=== PATIENT | male | born 1975 | race Caucasian/White ===

== ENCOUNTER 2019-10-23 18:07 | Emergency (ER) | payer OTHER, SELFPAY ==
--- NOTE | ~2019-10-23 | XR_ITS ---
EXAMINATION: XR chest 2V EXAM DATE: 10/23/2019 18:48 INDICATION: Cough for 3 weeks. TECHNIQUE: Frontal and lateral projections of the chest obtained and reviewed. Comparison is made to prior examination from 09/25/2015. FINDINGS: Anterior basilar granuloma unchanged, identified on the lateral projection. The lungs are otherwise clear. There are no pleural effusions. The cardiomediastinal silhouette is within normal limits. There is no pneumothorax suspected. The bones and soft tissues are unremarkable. IMPRESSION: No acute cardiopulmonary findings. Reviewed, dictated and finalized at location A.
[2019-10-23 18:18] VITALS: BP 127/76; PULSE 78; RESP 16; TEMP 36.7; O2SAT 99
--- NOTE | 2019-10-23 18:59 | ED.URI ---
HPI - URI/Sore Throat General Chief Complaint: Upper Respiratory Infection Stated Complaint: Cough Source: patient Mode of arrival: ambulatory Limitations: no limitations History of Present Illness HPI Narrative: Patient is a 44-year-old male who presents complaining of productive cough and congestion x2 to 3 weeks. Patient denies chest pain or shortness of breath at this time. Patient denies fever. Patient reports that he currently does smoke cigarettes. Patient reports using [id number] medications with mild to moderate relief. MD elicited complaint: cough and nasal congestion Related Data Allergies Allergy/AdvReac Type Severity Reaction Status Date / Time No Known Allergies Allergy Verified 06/12/15 12:38 Review of Systems Review of Systems: Narrative: CONSTITUTIONAL: Denies fever, chills, or sweats. EYES: Denies visual changes, redness, or discharge. ENT: Denies rhinorrhea, sore throat, or otalgia. Reports congestion CARDIOVASCULAR: Denies chest pain, palpitations, or edema. RESPIRATORY: Reports cough, denies dyspnea. GASTROINTESTINAL: Denies abdominal pain, nausea, vomiting, or diarrhea. GENITOURINARY: Denies dysuria or hematuria. SKIN: Denies rash or itching. MUSCULOSKELETAL: Denies back pain, joint pain, or myalgia. NEUROLOGIC: Denies headache, numbness, dizziness, or weakness. PSYCHIATRIC: Denies anxiety or depression. PMFSH Past Medical History Medical History No significant family history No significant past medical history Surgical History Surgical History No significant past surgical history Family History Family History Grandparent Family history of lung cancer Social History Social History Smoking status: Current every day smoker Exam Narrative: Exam Narrative: GENERAL: Well-appearing, well-nourished, and in no acute distress. HEAD: Normocephalic, atraumatic. EYES: EOMI. No redness or drainage. Conjunctiva are normal. ENT: Mucous membranes pink and moist. Nares clear. No rhinorrhea. TMs normal bilaterally. Throat normal. Uvula midline. NECK: AROM. Supple. No lymphadenopathy. CHEST: No respiratory distress. Clear to auscultation. HEART: Regular rate and rhythm. No murmur appreciated. Normal peripheral pulses. EXTREMITIES: Normal range of motion. No edema. SKIN: Warm, dry, no rash. NEURO: No focal deficits. Alert and oriented x3. Gait steady. PSYCH: Normal affect. No signs of depression or anxiety. Course Vital Signs Vital signs: Vital Signs Temperature 36.7 C 10/23/19 18:18 Pulse Rate 78 10/23/19 18:18 Respiratory Rate 16 10/23/19 18:18 Blood Pressure 127/76 10/23/19 18:18 Pulse Oximetry 99 10/23/19 18:18 Temperature 36.7 C 10/23/19 18:18 Pulse Rate 78 10/23/19 18:18 Respiratory Rate 16 10/23/19 18:18 Blood Pressure 127/76 10/23/19 18:18 Pulse Oximetry 99 10/23/19 18:18 MDM - URI/Sore Throat MDM Narrative Medical decision making narrative: Patient most likely has URI. Reports history of bronchitis in the past. Lungs are clear at this time. Discussed with patient continuing to take [id number] meds for relief. Patient also started on prednisone and inhaler at this time. Patient agrees with plan of care. Patient is stable for discharge home with outpatient follow-up as needed. Differential Diagnosis Differential diagnosis: Likely upper respiratory infection, sinusitis, viral infection and bronchitis Critical Care Time Critical Care Time Critical Care Time: No Discharge Plan Discharge Clinical Impression: Bronchitis Patient Disposition: Home, Self-Care Condition: Stable Instructions: Acute Bronchitis (ED) Additional Instructions: Follow-up with your PCP in 3 to 5 days if symptoms pers
== END 2019-10-23 19:15 | disposition home or self-care (01) ==
PROVIDERS: Emergency Provider Nurse Practitioner; PCP Family Medicine
DX: J40 Bronchitis, not specified as acute or chronic (principal); F17.200 Nicotine dependence, unspecified, uncomplicated
CPT/HCPCS: 71046; 99203; G0463

== ENCOUNTER 2020-10-17 13:26 | Emergency (ER) | payer OTHER, SELFPAY ==
[2020-10-17 13:42] VITALS: BP 129/80; PULSE 98; RESP 16; TEMP 36.7; O2SAT 97
--- NOTE | 2020-10-17 13:57 | ED.EAR ---
HPI - Ear Problem General Chief complaint: Ear Stated complaint: left ear pain Source: patient and RN notes reviewed Limitations: no limitations History of Present Illness HPI Narrative: The patient, a non-smoker/ occ drinker, complains of 1 week history of mild left ear discomfort. No fever, discharge, loss of taste/smell, CP, vomiting/diarrhea, S OB, sore throat.He is concerned has had an ear infection, as he has had ruptured TM on the right in the past. His discomfort actually is behind the angle of jaw; No TMJ, bruxism, tooth ache, no rash-he comments he has pimples in his right groin. Discussed possible causes [dental , infectious, allergic] and will treat broadly Related Data Home Medications Medication Instructions Recorded Confirmed loratadine [Claritin] 10 mg PO DAILY 10/17/20 10/17/20 Allergies Allergy/AdvReac Type Severity Reaction Status Date / Time No Known Allergies Allergy Verified 10/17/20 13:38 Review of Systems Review of Systems: Narrative: General/Constitutional: No weight loss,fever Eyes: N0: Redness,discharge Ears/Nose/Throat: No: Epistaxis,ear discharge Respiratory: Denies: Hemoptysis Gastrointestinal: No Vomiting, Bleeding-rectal Skin: No Lumps, eruption Neurologic: No Focal Weakness,Sz Hematologic: Denies: Petechiae/Purpura Psychiatric: No: Suicida ideationl All Other Systems: Reviewed and Negative [facility] Past Medical History Medical History (Updated 10/17/20 @ 14:36 by Blu Mayer MD) No significant family history No significant past medical history Surgical History Surgical History No significant past surgical history Family History Family History Grandparent Family history of lung cancer Social History Social History Smoking status: Current every day smoker Gender identity (if verbalized by the patient): Male Comments At time of signature, agree with nursing past medical, surgical, social and family history. There is no relevant family history pertinent to the presenting complaint Exam Narrative: Exam Narrative: General Appearance: Well appearing, No distress EYE: PERRLA, Conjunctiva clear Ears: External ear normal Nose: Normal nose Mouth/Throat: Normal appearing, Normal lips Neck: Supple, no TMJ tenderness Respiratory: Airway patent, No respiratory distress Cardiovascular: no JVD Musculoskeletal: Full ROM Skin: Warm, Dry; no folliculitis change -right groin Neurological: A&O x3, CN II-X intact Psychiatric: Normal mood, Normal affect Course Vital Signs Vital signs: Vital Signs Temperature 98.1 F 10/17/20 13:42 Pulse Rate 98 10/17/20 13:42 Respiratory Rate 16 10/17/20 13:42 Blood Pressure 129/80 10/17/20 13:42 Pulse Oximetry 97 10/17/20 13:42 Temperature 98.1 F 10/17/20 13:42 Pulse Rate 98 10/17/20 13:42 Respiratory Rate 16 10/17/20 13:42 Blood Pressure 129/80 10/17/20 13:42 Pulse Oximetry 97 10/17/20 13:42 Medical Decision Making Vital Signs Vital Signs: Vital Signs Temperature 98.1 F 10/17/20 13:42 Pulse Rate 98 10/17/20 13:42 Respiratory Rate 16 10/17/20 13:42 Blood Pressure 129/80 10/17/20 13:42 Pulse Oximetry 97 10/17/20 13:42 Temperature 98.1 F 10/17/20 13:42 Pulse Rate 98 10/17/20 13:42 Respiratory Rate 16 10/17/20 13:42 Blood Pressure 129/80 10/17/20 13:42 Pulse Oximetry 97 10/17/20 13:42 Discharge Plan Discharge Clinical Impression: Otalgia, left ear, Folliculitis Patient Disposition: Home, Self-Care Condition: Stable Instructions: Antibiotic Form, Earache (ED) Prescriptions: New clindamycin HCl 300 mg capsule 300 mg PO TID Qty: 15 RF: 0 mupirocin 2 % ointment 1 applic TOPICAL TID Qty: 30 RF: 0 prednisone 20 mg tablet 60 mg PO DAILY
== END 2020-10-17 14:03 | disposition home or self-care (01) ==
PROVIDERS: Emergency Provider Emergency Medicine
DX: H92.02 Otalgia, left ear (principal); L73.9 Follicular disorder, unspecified; F17.200 Nicotine dependence, unspecified, uncomplicated
CPT/HCPCS: 99213; G0463

== ENCOUNTER 2021-08-11 19:06 | Emergency (ER) | payer OTHER, SELFPAY ==
[2021-08-11 19:13] VITALS: BP 136/81; PULSE 82; RESP 16; TEMP 36.4; O2SAT 100
--- NOTE | 2021-08-11 19:19 | ED.URI ---
HPI - URI/Sore Throat General Chief Complaint: Upper Respiratory Infection Stated Complaint: Sinus infection Time Seen by Provider: 08/11/21 19:19 Source: patient and RN notes reviewed Mode of arrival: ambulatory Limitations: no limitations History of Present Illness HPI Narrative: Avni is a 46-year-old male patient who ambulated into the [facility]. Patient states he has a 2-week history of ear pain, and sinus congestion. Patient states he felt like there was fluid in his right ear and now his left is worse. Patient states he has a sore throat. Patient denies any medical problems at this time. Patient has been taking Claritin [id number] daily. With minimal MD elicited complaint: sore throat and other Related Data Allergies Allergy/AdvReac Type Severity Reaction Status Date / Time No Known Allergies Allergy Verified 08/11/21 19:11 Review of Systems Review of Systems: CONSTITUTIONAL: Denies body aches, fever, chills, or sweats. EYES: Denies visual changes, redness, or discharge. ENT: Denies rhinorrhea, +congestion, +sore throat, + otalgia. CARDIOVASCULAR: Denies chest pain, palpitations, or edema. RESPIRATORY: Denies cough or dyspnea. GASTROINTESTINAL: Denies abdominal pain, nausea, vomiting, or diarrhea. GENITOURINARY: Denies dysuria or hematuria. SKIN: Denies rash, itching, or wounds. MUSCULOSKELETAL: Denies back pain, joint pain, or myalgia. NEUROLOGIC: Denies headache, numbness, tingling, or weakness. PSYCH: Denies depression or anxiety. All systems reviewed & are unremarkable except as noted in HPI and below PMFSH Past Medical History Medical History (Updated 08/11/21 @ 19:24 by ZEB Perez) No significant family history No significant past medical history Surgical History Surgical History No significant past surgical history Family History Family History Grandparent Family history of lung cancer Social History Social History Smoking status: Current every day smoker Gender identity (if verbalized by the patient): Male Comments At time of signature, I have reviewed and agree with nursing past medical, surgical, social and family history unless otherwise noted. Please see nursing chart for further information. There is no relevant family history pertinent to the presenting complaint Exam Narrative: GENERAL: Well-appearing, well-nourished, and in no acute distress. HEAD: Normocephalic, atraumatic. EYES: EOMI. No redness or drainage. Conjunctivae normal. ENT: Mucous membranes pink and moist. Nares clear. No rhinorrhea. Right tympanic membrane is opaque with moderate bulging. Left tympanic membrane is bulging and erythemic. Small blisters noted on the tympanic membrane. Posterior pharynx is erythemic with moderate edema 3+ tonsils are noted. No exudate is noted. Uvula midline. NECK: Normal AROM. Supple. Left anterior cervical lymphadenopathy. CHEST: No respiratory distress. Clear to auscultation. MUSCULOSKELETAL: No bony tenderness. EXTREMITIES: Normal range of motion. No edema. SKIN: Warm, dry, no rash. Capillary refill normal. Normal skin turgor. NEURO: No focal deficits. Alert and oriented x3. Gait steady. PSYCH: Normal affect. No signs of depression or anxiety. Course Vital Signs Vital signs: Vital Signs Temperature 36.4 C 08/11/21 19:13 Pulse Rate 82 08/11/21 19:13 Respiratory Rate 16 08/11/21 19:13 Blood Pressure 136/81 08/11/21 19:13 Pulse Oximetry 100 08/11/21 19:13 Temperature 36.4 C 08/11/21 19:13 Pulse Rate 82 08/11/21 19:13 Respiratory Rate 16 08/11/21 19:13 Blood Pressure 136/81 08/11/21 19:13 Pulse Oximetry 100 08/11/21 19:13 Reviewed. Pt has been instructed to follow up with his PCP regarding his elevated blood pressure today. MDM - URI/Sore Th
[2021-08-11 19:20] VITALS: BP 136/81; PULSE 82; RESP 16; TEMP 36.4; O2SAT 100
== END 2021-08-11 19:27 | disposition home or self-care (01) ==
PROVIDERS: Emergency Provider Nurse Practitioner Family; PCP Family Medicine
DX: H66.002 Acute suppurative otitis media without spontaneous rupture of ear drum, left ear (principal); F17.200 Nicotine dependence, unspecified, uncomplicated
CPT/HCPCS: 99213; G0463

== ENCOUNTER 2021-10-04 12:08 | Emergency (ER) | payer OTHER, SELFPAY ==
[2021-10-04 12:22] VITALS: BP 129/88; PULSE 88; RESP 20; TEMP 36.6; O2SAT 99
--- NOTE | 2021-10-04 12:39 | ED.URI ---
HPI - URI/Sore Throat General Chief Complaint: Upper Respiratory Infection Stated Complaint: sinus infection Time Seen by Provider: 10/04/21 12:39 Source: patient, family, RN notes reviewed and old records reviewed Mode of arrival: ambulatory Limitations: no limitations History of Present Illness HPI Narrative: 46-year-old male presents to the [facility] with 2 weeks of ear pain and sinus congestion. No treatment prior to arrival. MD elicited complaint: nasal congestion and sinus pain Related Data Allergies Allergy/AdvReac Type Severity Reaction Status Date / Time No Known Allergies Allergy Verified 08/11/21 19:11 Review of Systems Review of Systems: All systems reviewed & are unremarkable except as noted in HPI and below Constitutional: Constitutional: Reports no additional constitutional complaints, Denies chills, Denies fever(s) and Denies headache(s) Eyes: Eyes: Reports no additional eye complaints ENT: Reports as per HPI, Denies vertigo, Denies dizziness, Denies headache(s), Reports nasal congestion and Denies sore throat Comments: Bilateral ear pain Cardiovascular: Cardiovascular: Reports no additional cardiovascular complaints, Denies chest pain, Denies syncope, Denies rapid heart rate and Denies dyspnea Respiratory: Respiratory: Reports no additional respiratory complaints, Denies cough, Denies dyspnea and Denies wheezing Gastrointestinal: Gastrointestinal: Reports no additional gastrointestinal complaints, Denies abdominal pain, Denies diarrhea, Denies nausea and Denies vomiting Musculoskeletal: Musculoskeletal: Reports no additional musculoskeletal complaints and Denies numbness Integumentary/Breasts: Skin/Breast: Reports system reviewed and no additional complaints, except as docu Neurologic: Reports system reviewed and no additional complaints, except as documented, Denies vertigo, Denies dizziness, Denies syncope, Denies headache(s), Denies focal weakness and Denies numbness Psychiatric: Psychiatric: Reports no additional psychiatric complaints Allergic/Immunologic: Allergic/Immunologic: Reports no additional allergic/immunologic complaints and Denies wheezing PMFSH Past Medical History Medical History (Updated 10/04/21 @ 12:48 by Lilly Blackmon) No significant family history No significant past medical history Surgical History Surgical History No significant past surgical history Family History Family History Grandparent Family history of lung cancer Social History Social History Smoking status: Current every day smoker Gender identity (if verbalized by the patient): Male Comments At the time of my signature, I reviewed and agree with the nursing past medical, surgical, social, and family history. There is no relevant family history pertinent to the patient complaint. Exam Const: General: cooperative, healthy appearing, no acute distress, well developed and alert Nutritional Appearance: well nourished Orientation/consciousness: patient oriented x3 Limitations: no limitations HENMT: Head: normal to inspection Ears: external ears normal, EAC's normal and TM abnormal bulging on the right, erythematous on the left and with fluid behind the TM on the right Eyes: Conjunctivae: conjunctivae normal Pupils: Equal, round and reactive pupils present Neck: Neck: normal visual inspection, no lymphadenopathy and no meningeal signs Chest: Chest palpation & inspection: normal inspection of the chest Resp: Effort & Inspection: normal respiratory effort and no use of accessory muscles Auscultation: clear to auscultation bilaterally, no crackles, no rales, no rhonchi and no wheezes Cardio: Rate: regular rate Rhythm: regular rhythm : General: Yes no CVA tenderness Back/Spine/Pelvis: Back: no CVA tenderness Skin: General skin exam: normal color Ra
== END 2021-10-04 12:52 | disposition home or self-care (01) ==
PROVIDERS: Emergency Provider Nurse Practitioner
DX: H66.91 Otitis media, unspecified, right ear (principal); J32.9 Chronic sinusitis, unspecified; H65.02 Acute serous otitis media, left ear; F17.200 Nicotine dependence, unspecified, uncomplicated
CPT/HCPCS: 99213; G0463

== ENCOUNTER 2021-10-22 16:11 | Emergency (ER) | payer OTHER, SELFPAY ==
[2021-10-22 16:47] VITALS: BP 150/80; PULSE 85; RESP 16; TEMP 36.6; O2SAT 99
--- NOTE | 2021-10-22 16:51 | ED.EAR ---
HPI - Ear Problem General Chief complaint: Ear Stated complaint: ear pain Time Seen by Provider: 10/22/21 16:51 Source: patient Mode of arrival: ambulatory Limitations: no limitations History of Present Illness HPI Narrative: 46 yo M presents with c/o pressure, feeling of being under water to L ear for several days. States not really painful . No change to hearing. afebrile. No other symptoms. All systems reviewed and negative except as noted above. Related Data Allergies Allergy/AdvReac Type Severity Reaction Status Date / Time No Known Allergies Allergy Verified 08/11/21 19:11 Review of Systems Review of Systems: CONSTITUTIONAL: Denies fever, chills, or sweats. EYES: Denies visual changes, redness, or discharge. ENT: Denies rhinorrhea, congestion, sore throat. Reports pressure and feeling of being underwater to left ear. CARDIOVASCULAR: Denies chest pain, palpitations, or edema. RESPIRATORY: Denies cough or dyspnea. GASTROINTESTINAL: Denies abdominal pain, nausea, vomiting, or diarrhea. GENITOURINARY: Denies dysuria or hematuria. SKIN: Denies rash or itching. MUSCULOSKELETAL: Denies back pain, joint pain, or myalgia. NEUROLOGIC: Denies headache, numbness, or weakness. PSYCHIATRIC: Denies anxiety or depression. All other systems reviewed are negative, except as documented in HPI. [facility] Past Medical History Medical History (Updated 10/22/21 @ 16:56 by Raquel Romero NP) No significant family history No significant past medical history Surgical History Surgical History No significant past surgical history Family History Family History Grandparent Family history of lung cancer Social History Social History Smoking status: Current every day smoker Gender identity (if verbalized by the patient): Male Comments At time of signature, agree with nursing past medical, surgical, social and family history. There is no relevant family history pertinent to the presenting complaint. Exam Narrative: GENERAL: This is a well-nourished, well-developed patient, in no apparent distress. HEAD: normocephalic, atraumatic. EYES: PERRL. Sclera clear/white. Vision is grossly intact. EARS: External ears normal, auditory canals clear and without drainage, right TM normal without perforation. Hearing grossly intact. Fluid to left TM with air bubbles, no erythema or bulging. NOSE: External nose normal with no obvious nasal discharge, nares without redness, no rhinorrhea. THROAT: Mucous membranes moist, posterior pharynx clear. NECK: Neck supple, non-tender without lymphadenopathy, masses or thyromegaly. CARDIOVASCULAR: Regular rate and rhythm without murmurs, gallops, or rubs. RESPIRATORY: Clear to auscultation. Breath sounds equal bilaterally. No wheezes, rales, or rhonchi. GASTROINTESTINAL: Abdomen soft, non-tender, nondistended. Bowel sounds are active. No hepato-splenomegaly, or palpable masses. No guarding. SKIN: warm, Dry, intact with no suspicious lesions or rash, good texture and turgor. NEURO: awake, alert, and oriented to person, place and time. There were no obvious focal neurologic abnormalities. EXTREMITIES: No joint tenderness, effusion, or edema noted. No calf tenderness. Negative Homans sign bilaterally. BACK: Nontender without deformity. No CVA tenderness. Course Course Level of Care: Express Care Visit Vital Signs Vital signs: Vital Signs Temperature 36.6 C 10/22/21 16:47 Pulse Rate 85 10/22/21 16:47 Respiratory Rate 16 10/22/21 16:47 Blood Pressure 150/80 H 10/22/21 16:47 Pulse Oximetry 99 10/22/21 16:47 Temperature 36.6 C 10/22/21 16:47 Pulse Rate 85 10/22/21 16:47 Respiratory Rate 16 10/22/21 16:47 Blood Pressure 150/80 H 10/22/21 16:47 Pulse Oximetry 99 10/22/21 16:47 Reviewed Medical Decision Dalia
== END 2021-10-22 16:58 | disposition home or self-care (01) ==
PROVIDERS: Emergency Provider Nurse Practitioner Family
DX: H93.92 Unspecified disorder of left ear (principal); F17.200 Nicotine dependence, unspecified, uncomplicated
CPT/HCPCS: 99211; G0463

== ENCOUNTER 2021-12-11 09:51 | Outpatient (CLI) | payer OTHER, SELFPAY | END 2021-12-11 09:52 | disposition home or self-care (01) | LOC: ANHAUDIO 09:52 | PROVIDERS: Visit Provider Otolaryngology | DX: H65.23 Chronic serous otitis media, bilateral (principal) | CPT/HCPCS: 92557; 92567 ==

== ENCOUNTER 2022-07-01 15:10 | Emergency (ER) | payer OTHER, SELFPAY ==
--- NOTE | 2022-07-01 15:19 | ED.URI ---
HPI - URI/Sore Throat General Chief Complaint: Upper Respiratory Infection Stated Complaint: cough Time Seen by Provider: 07/01/22 15:41 Source: patient, RN notes reviewed and old records reviewed Mode of arrival: ambulatory Limitations: no limitations History of Present Illness HPI Narrative: 47-year-old male presents to the [facility] with complaints of a cough for 1 month. Denies any chest pain, abdominal pain. Denies fevers. No shortness of breath. No treatment prior to arrival Related Data Allergies Allergy/AdvReac Type Severity Reaction Status Date / Time No Known Allergies Allergy Verified 07/01/22 15:50 Review of Systems Review of Systems: All systems reviewed & are unremarkable except as noted in HPI and below Constitutional: Constitutional: Reports no additional constitutional complaints, Denies chills and Denies fever(s) Eyes: Eyes: Reports no additional eye complaints ENT: Reports system reviewed and no additional complaints, except as documented Cardiovascular: Cardiovascular: Reports no additional cardiovascular complaints Respiratory: Respiratory: Reports as per HPI, Denies chest congestion, Reports cough, Denies dyspnea and Denies wheezing Gastrointestinal: Gastrointestinal: Reports no additional gastrointestinal complaints Musculoskeletal: Musculoskeletal: Reports no additional musculoskeletal complaints Integumentary/Breasts: Skin/Breast: Reports system reviewed and no additional complaints, except as docu Neurologic: Reports system reviewed and no additional complaints, except as documented Psychiatric: Psychiatric: Reports no additional psychiatric complaints Allergic/Immunologic: Allergic/Immunologic: Reports no additional allergic/immunologic complaints [facility] Past Medical History Medical History (Updated 07/01/22 @ 15:50 by Lilly Blackmon APRN) No significant family history No significant past medical history Surgical History Surgical History No significant past surgical history Family History Family History Grandparent Family history of lung cancer Social History Social History Smoking status: Current every day smoker Gender identity (if verbalized by the patient): Male Comments At the time of my signature, I reviewed and agree with the nursing past medical, surgical, social, and family history. There is no relevant family history pertinent to the patient complaint. Exam Const: General: healthy appearing, comfortable, no acute distress, well developed, alert and well nourished Nutritional Appearance: well nourished Orientation/consciousness: patient oriented x3 Limitations: no limitations HENMT: Head: normal to inspection Ears: external ears normal and TM abnormal other (Bilateral tubes) Face/Nose/Sinus: Normal external nose present and Normal nares present Eyes: General: appearance normal, both eyes and all related structures Pupils: Equal, round and reactive pupils present Neck: Neck: normal visual inspection, full ROM, no lymphadenopathy and no meningeal signs Chest: Chest palpation & inspection: normal inspection of the chest Resp: Effort & Inspection: normal respiratory effort and no use of accessory muscles Auscultation: clear to auscultation bilaterally, no crackles, no rales, no rhonchi and no wheezes Cardio: Rate: regular rate Rhythm: regular rhythm Back/Spine/Pelvis: Cervical Spine: cervical ROM normal and No Cervical spine tenderness Thoracic/Lumbar Spine: thoracic and lumbar spine normal to inspection and thoraco-lumbar ROM normal Skin: General skin exam: normal color Rashes: no rashes Wounds: no wounds Neuro: General: patient oriented x3, moves all extremities, no meningeal signs and no focal motor deficits Cranial nerves: Yes Equal, round and reactive pupils present Speech: malcolm
[2022-07-01 15:22] VITALS: BP 140/79; PULSE 71; RESP 16; TEMP 36.6; O2SAT 98
== END 2022-07-01 15:59 | disposition home or self-care (01) ==
PROVIDERS: Emergency Provider Nurse Practitioner
DX: J40 Bronchitis, not specified as acute or chronic (principal); F17.200 Nicotine dependence, unspecified, uncomplicated
CPT/HCPCS: 99213; G0463

== ENCOUNTER 2022-10-30 15:06 | Emergency (ER) | payer OTHER, SELFPAY ==
[2022-10-30 15:16] VITALS: BP 138/78; PULSE 72; RESP 16; TEMP 36.4; O2SAT 98
--- NOTE | 2022-10-30 15:35 | ED.SKABFB ---
HPI - Skin/Abscess/Foreign Bdy General Chief complaint: Skin/Abscess/Foreign Body Stated complaint: Bump On Right Abdomen Time Seen by Provider: 10/30/22 15:35 Source: patient Mode of arrival: ambulatory Limitations: no limitations History of Present Illness HPI narrative: 47-year-old male presented for complaint of red, warm, painful wound to the right lower abdomen for about 1 week. States his belt and pants rub the area. He tried to pop it yesterday but only expelled blood. Denies associated nausea, vomiting, fevers or chills. Denies any similar lesions anywhere else in his body. Related Data Allergies Allergy/AdvReac Type Severity Reaction Status Date / Time No Known Allergies Allergy Verified 10/30/22 15:12 Review of Systems Review of Systems: CONSTITUTIONAL: Denies body aches, fever, chills, or sweats. EYES: Denies visual changes, redness, or discharge. ENT: Denies rhinorrhea, congestion CARDIOVASCULAR: Denies chest pain, palpitations, or edema. RESPIRATORY: Denies cough or dyspnea. GASTROINTESTINAL: Denies abdominal pain, nausea, vomiting, or diarrhea. SKIN: per HPI MUSCULOSKELETAL: Denies back pain, joint pain, or myalgia. NEUROLOGIC: Denies headache, numbness, tingling, or weakness. [facility] Past Medical History Medical History No significant family history No significant past medical history Surgical History Surgical History No significant past surgical history Family History Family History Grandparent Family history of lung cancer Social History Social History Smoking status: Current every day smoker Gender identity (if verbalized by the patient): Male Comments At time of signature, I have reviewed and agree with nursing past medical, surgical, social and family history unless otherwise noted. Please see nursing chart for further information. There is no relevant family history pertinent to the presenting complaint Exam Narrative: GENERAL: Well-appearing EYES: conjunctivae clear, and EOMI. ENT: Mucous membranes moist. Oropharynx without edema, erythema or lesions. NECK: Supple. No lymphadenopathy CHEST: Clear to auscultation. HEART: Regular rate and rhythm. SKIN: Warm, dry. [id number] erythematous tender abscess to right lower abd/beltline, firm, no fluctuance or active drainage NEURO: Alert and oriented x3. Course Course Emergency Course: Patient is aware of diagnosis, understands and agrees to treatment plan. Anticipatory guidance given. Patient agrees to follow-up as directed and is aware of reasons to seek care at the emergency department. Portions of this record may have been created with voice recognition software Level of Care: Express Care Visit Vital Signs Vital signs: Vital Signs Temperature 97.5 F L 10/30/22 15:16 Pulse Rate 72 10/30/22 15:16 Respiratory Rate 16 10/30/22 15:16 Blood Pressure 138/78 10/30/22 15:16 Pulse Oximetry 98 10/30/22 15:16 Oxygen Delivery Room Air 10/30/22 15:16 Temperature 97.5 F L 10/30/22 15:16 Pulse Rate 72 10/30/22 15:16 Respiratory Rate 16 10/30/22 15:16 Blood Pressure 138/78 10/30/22 15:16 Pulse Oximetry 98 10/30/22 15:16 Oxygen Delivery Room Air 10/30/22 15:16 Reviewed MDM - Skin/Abscess/Foreign Bdy MDM Narrative Medical decision making narrative: Discussed physical findings with patient. Site is firm, no fluctuance, therefor no indication for I& D at this time. Rx for antibiotics, and advised close follow-up with PCP. Advised supportive measures and signs/symptoms to go to the ER. Pt is appropriate for outpt treatment and f/u. Differential Diagnosis Differential diagnosis: Likely abscess of skin or subcutaneous tissue, urticaria, herpes zoster, cellulitis an
== END 2022-10-30 15:45 | disposition home or self-care (01) ==
PROVIDERS: Emergency Provider Nurse Practitioner Family; PCP Physician Assistant
DX: L02.211 Cutaneous abscess of abdominal wall (principal); F17.200 Nicotine dependence, unspecified, uncomplicated
CPT/HCPCS: 99213; G0463

== ENCOUNTER 2023-04-04 14:45 | Emergency (ER) | payer BC, SELFPAY ==
--- NOTE | 2023-04-04 14:47 | ED.URI ---
HPI - URI/Sore Throat General Chief Complaint: Unspecified Stated Complaint: Sinus Time Seen by Provider: 04/04/23 14:47 Source: patient Mode of arrival: ambulatory Limitations: no limitations History of Present Illness HPI Narrative: Avni is a 47-year-old male patient presenting to the clinic today with complaints of sinus congestion, headache, nasal drainage cone in the back was through times 2 weeks or more. He reports no fever or chills. Does have a productive cough with some yellow phlegm. MD elicited complaint: sore throat and nasal congestion Related Data Allergies Allergy/AdvReac Type Severity Reaction Status Date / Time No Known Allergies Allergy Verified 10/30/22 15:12 Review of Systems Review of Systems: Pertinent positives per HPI. Patient denies any fever, chills, rash, headache, visual changes, dizziness,shortness of breath, chest pain, palpitations, nausea, vomiting, diarrhea, constipation, abdominal pain, or any urinary issues. PMFSH Past Medical History Medical History (Updated 04/04/23 @ 15:04 by Yao Ritter APRN) No significant family history No significant past medical history Surgical History Surgical History No significant past surgical history Family History Family History Grandparent Family history of lung cancer Social History Social History Smoking status: Current every day smoker Gender identity (if verbalized by the patient): Male Comments At the time of my signature, I reviewed and agree with the nursing past medical, surgical, social, and family history. There is no relevant family history pertinent to the patient complaint. Exam Narrative: General: Well-developed, well nourished, in no apparent distress Head: Normocephalic, atraumatic Eyes: Pupils equally round and reactive to light bilaterally, EOM intact, sclera and conjunctive clear, no discharge, lids normal Ears: TMs intact and clear, ear canals clear, no drainage, grossly hearing normal. Nose: Nares patent, yellow discharge, moderate inflammation, maxillary sinus tenderness. Mouth: Oral pharynx without lesions or masses, good dentition, MMM. Neck: Supple, trachea midline, no enlargement of anterior or posterior cervical nodes, no thyroid masses or goiter palpable. Cardio: Regular rate and rhythm, s1 and s2 normal, no murmur appreciated. Resp: Clear to auscultation bilaterally, no rhonchi, rales, wheezing or rubs Course Course Emergency Course: Portions of this record may have been created with voice recognition software. Level of Care: Express Care Visit Vital Signs Vital signs: Vital signs reviewed MDM - URI/Sore Throat MDM Narrative Medical decision making narrative: At the time of visit patient is resting comfortably on the exam table. I suspect patient has acute bacterial rhinosinusitis. Prescription for Augmentin and prednisone was sent to the pharmacy. Supportive measures were discussed with the patient he voiced understanding discharge instructions agrees to treatment plan. Differential Diagnosis Differential diagnosis: Likely upper respiratory infection, otitis media, sinusitis, viral infection, bronchitis, influenza, pharyngitis and other (COVID) Discharge Plan Discharge Clinical Impression: Acute bacterial rhinosinusitis Patient Disposition: Home, Self-Care Condition: Stable Instructions: Antibiotic Form, Rhinosinusitis (ED) Additional Instructions: Take prescription medications only as prescribed-prednisone and Augmentin Increase fluids and stay well hydrated Tylenol/motrin for pain/fever Flonase and OTC antihistamines as directed Vicks vapor rub to open sinuses Sinus rinses for congestion Cepacol spray, cough drops, throat lozenges, warm tea with honey/lemon,
[2023-04-04 14:53] VITALS: BP 132/81; PULSE 96; RESP 20; TEMP 36.4; O2SAT 99
--- NOTE | 2023-04-04 15:06 | PC.NURSE ---
documentation completed per earnest mohamud rn, reviewed
== END 2023-04-04 15:11 | disposition home or self-care (01) ==
PROVIDERS: Emergency Provider Nurse Practitioner Family; PCP Physician Assistant
DX: J01.90 Acute sinusitis, unspecified (principal); F17.200 Nicotine dependence, unspecified, uncomplicated
CPT/HCPCS: 99213; G0463

== ENCOUNTER 2023-07-04 12:08 | Emergency (ER) | payer BC, SELFPAY ==
[2023-07-04 12:22] VITALS: BP 125/75; PULSE 90; RESP 16; TEMP 36.5; O2SAT 99
--- NOTE | 2023-07-04 13:07 | ED.GENADULT ---
HPI - General Adult General Chief complaint: Ear Stated complaint: right ear irritated, tube came out last pm Time Seen by Provider: 07/04/23 13:07 Source: patient Mode of arrival: ambulatory Limitations: no limitations History of Present Illness HPI narrative: 48-year-old male patient presents to the [facility] with complaints of right ear discomfort. Patient states he had bilateral ear tubes placed about a year ago for issues with drainage in recurrent ear infections. Patient states that they looked in the ear yesterday and saw a lot of pus earwax and discharge around the tube and that it did fall out last night. Denies fevers body aches or chills but states he did have cold symptoms about a week ago but he is getting over it. Denies any acute pain at this time. Denies drainage from the ear at this time. Related Data Home Medications Medication Instructions Recorded Confirmed loratadine 10 mg tablet (Claritin) 10 mg PO DAILY 07/04/23 07/04/23 Allergies Allergy/AdvReac Type Severity Reaction Status Date / Time No Known Allergies Allergy Verified 07/04/23 12:47 Review of Systems Review of Systems: CONSTITUTIONAL: Denies fever, chills, or sweats. EYES: Denies visual changes, redness, or discharge. ENT: Denies rhinorrhea, congestion, sore throat, or otalgia. Positive right ear discomfort posterior pharynx with no erythema or tonsillar enlargement noted. CARDIOVASCULAR: Denies chest pain, palpitations, or edema. RESPIRATORY: Denies cough or dyspnea. GASTROINTESTINAL: Denies abdominal pain, nausea, vomiting, or diarrhea. GENITOURINARY: Denies dysuria or hematuria. SKIN: Denies rash or itching. MUSCULOSKELETAL: Denies back pain, joint pain, or myalgia. NEUROLOGIC: Denies headache, numbness, or weakness. PSYCHIATRIC: Denies anxiety or depression. [facility] Past Medical History Medical History (Updated 07/04/23 @ 13:29 by EUNICE Mi) No significant family history No significant past medical history Surgical History Surgical History No significant past surgical history Family History Family History Grandparent Family history of lung cancer Social History Social History Smoking status: Current every day smoker Gender identity (if verbalized by the patient): Male Comments At the time of my signature I agree with nursing past medical history, surgical, social, and family history. There is no relevant family history pertinent to the presenting complaint. Exam Narrative: GENERAL: Well-appearing, well-nourished, and in no acute distress. HEAD: Normocephalic, atraumatic. EYES: PERRLA and EOMI. ENT: Nares clear, no rhinorrhea or epistaxis. Mucous membranes moist. The left ear does have a tube present and no signs symptoms of infection. The right ear has no tube visualized but no signs and symptoms of infection or drainage at this time. NECK: Supple. No lymphadenopathy CHEST: Clear to auscultation. No respiratory distress. HEART: Regular rate and rhythm. No murmur heard. Normal peripheral pulses. ABDOMEN: Soft, nontender, nondistended, normal active bowel sounds. EXTREMITIES: Normal range of motion. No edema. SKIN: Warm, dry, no rash. NEURO: No focal deficits. Alert and oriented x3. Course Course Level of Care: Express Care Visit Vital Signs Vital signs: Vital Signs Temperature 36.5 C 07/04/23 12:22 Pulse Rate 90 07/04/23 12:22 Respiratory Rate 16 07/04/23 12:22 Blood Pressure 125/75 07/04/23 12:22 Pulse Oximetry 99 07/04/23 12:22 Oxygen Delivery Room Air 07/04/23 12:22 Temperature 36.5 C 07/04/23 12:22 Pulse Rate 90 07/04/23 12:22 Respiratory Rate 16 07/04/23 12:22 Blood Pressure 125/75 07/04/23 12:22 Pulse Oximetry 99 07/04/23 12:22 Oxygen Delivery Room Air 07/04/23 12:22
== END 2023-07-04 13:34 | disposition home or self-care (01) ==
PROVIDERS: Emergency Provider Nurse Practitioner Family
DX: H69.91 Unspecified Eustachian tube disorder, right ear (principal); F17.200 Nicotine dependence, unspecified, uncomplicated
CPT/HCPCS: 99211; G0463

== ENCOUNTER 2025-08-09 09:56 | Outpatient (CLI) | payer OTHER, SELFPAY ==
--- OUTSIDE RECORDS SUMMARY | 2025-08-09 09:58 | XMS_ITS | Clinical Summary ---
Author Organization [facility] Office Center Address [address] [place] [address] Care Team Providers Care Ross Furnace Operator Name Role Phone Mell Schaeffer NP Primary Care Provider [phone] Unknown, Notinfile Unavailable Unavailable Allergies No known active allergies Medications loratadine (CLARITIN) 10 mg tablet Take 10 mg by mouth daily Active fluticasone propionate (FLONASE) 50 mcg/actuation nasal spray SHAKE LIQUID AND USE 1 SPRAY IN EACH NOSTRIL DAILY 01/04/20 25 Active dextromethorphan HBr (Tussin Cough, DM only,) 15 mg/5 mL liquidIndication s:Acute bronchitis with bronchospasm Take 5 mL/oz by mouth every 6 (six) hours as needed (as needed for cough) 420 mL 02/21/20 25 Active atorvastatin (LIPITOR) 20 mg tablet Take 1 tablet every day by oral route for 30 days, for hyperlipidemia. 05/26/20 25 Active Contour Plus Test Strip strip USE TO TEST TWICE DAILY 06/12/20 25 Active metFORMIN XR (GLUCOPHAGE XR) 500 mg 24 hr tablet TAKE 2 TABLETS BY MOUTH TWICE DAILY DIRECTED FOR DIABETES Active nicotine (NICODERM CQ) 14 mg Apply 1 patch every day by transdermal route as needed for 30 days, for smoking cessation. 03/06/20 25 Active albuterol HFA (PROVENTIL HFA,VENTOLIN HFA,PROAIR HFA) 90 mcg/actuation inhalerIndicatio ns:Acute bronchitis due to other specified organisms Inhale 2 puffs every 4 (four) hours as needed for wheezing 1 each 07/14/20 25 026 Active albuterol HFA (PROVENTIL HFA,VENTOLIN HFA,PROAIR HFA) 90 mcg/actuation inhalerIndicatio ns:Acute bronchitis with bronchospasm Inhale 1 puff every 6 (six) hours as needed for wheezing or shortness of breath 18 each 02/21/20 25 025 Discontinu ed(Patient Reported) methylPREDNISolo ne (MEDROL DOSEPACK) 4 mg DosepackIndicati ons:Acute bronchitis with bronchospasm follow package directions 1 packet 02/21/20 25 025 Discontinu ed(Patient Reported) predniSONE (DELTASONE) 20 mg tabletIndication s:Acute bronchitis due to other specified organisms Take 2 tablets (40 mg) by mouth daily with breakfast for 5 days 10 tablet 07/14/20 25 025 benzonatate (TESSALON) 100 mg capsuleIndicatio ns:Cough Take 1 capsule (100 mg total) by mouth 3 (three) times a day as needed for cough for up to 7 days 21 capsule 07/14/20 25 025 amoxicillin-clav ulanate (AUGMENTIN) 875-125 mg per tabletIndication s:Pneumonia, Community Acquired Take 1 tablet by mouth 2 (two) times a day for 5 days 10 tablet 07/14/20 25 025 azithromycin (ZITHROMAX) 500 mg tabletIndication s:Acute bronchitis due to other specified organisms Take 1 tablet (500 mg total) by mouth daily for 3 days 3 tablet 07/14/20 25 025 Active Problems Problem Noted Date Diagnosed Date Nicotine dependence, cigarettes, uncomplicated 1 09/13/2024 Hx of tympanostomy tubes 07/14/2025 Acute cough 06/13/2023 Assessment & Plan (06/13/2023 9:54 AM CDT): Vss, nad, lungs with faint wheezing bilaterally Sx duration 1 week Active smoker Offered chest x-ray, patient declined at this time Prednisone 40 mg daily x 5 days Augmentin, azithromycin Tessalon prn Albuterol prn Er for SOB, CP, fevers Screening, anemia, deficiency, iron 04/21/2023 Wellness examination 04/21/2023 Assessment & Plan (04/21/2023 6:27 PM CDT): Routine health maintenance objectives discussed and orders placed for any outstanding screening studies. Physical exam performed as above. Routine annual labs obtained and will be reviewed with patient when results available. Age-appropriate anticipatory guidance and counseling was provided and reviewed including: Use of sunscreen on a daily basis for skin cancer prevention Encouraged regular physical activity--moderate activity for a total of 150 minutes per week over 3-5 days. Encouraged healthy diet with regular fresh fruits and vegetables limited in processed carbohydrates. Alcohol use-minimal Nicotine use - discussed nicotine use. Patient declines cessation therapies at this time. We discussed potential methods to stop using nicotine. Patient expresses some interest and will think about this. Depression screening -denies Patient will complete lab work and we will follow-up with patient following completion of lab work. Patient declines pneumonia and Tdap vaccine at this time. BMI 28.0-28.9,adult 04/21/2023 Assessment & Plan (04/21/2023 6:27 PM CDT): Discussed the patient's BMI. The BMI is above average. BMI management plan is completed. BMI Follow-up includes: nutrition counseling, exercise counseling and education provided. Hypertension, essential 04/21/2023 Assessment & Plan (04/21/2023 6:27 PM CDT): Stage I hypertension. Reviewed heart healthy diet and limit of salt intake. We will follow up in 6 months for repeat blood pressure screen. Treatment of the medication not indicated at this time. Labs pending. Diverticulitis large intesti ne w/o perforation or abscess w/o bleeding 05/14/2021 Encounters Date Type Department Care Team Description 07/14/2025 4:00 PM RECYCLING TECHNICIAN Office Visit [facility] [address] [place] [address] Isac Zuluaga NP Upper respiratory tract infection, unspecified type (Primary Dx); Acute left otitis media; Acute bronchitis due to other specified organisms; Nicotine dependence, cigarettes, uncomplicated; Hx of tympanostomy tubes from Last 3 Months Surgical History Surgery Date Site/Laterality Comments CT GUIDED DRAINAGE PERITONEA L OR RETROPERITONEAL FLUID COLLECTION 07/09/2018 N/A ABDOMINAL HERNIA REPAIR HERNIA REPAIR TYMPANOSTOMY TUBE PLACEMENT Bilateral Medical History Medical History Date Comments Diverticulosis Allergic rhinitis Allergic Family History Medical History Relation Name Comments Diabetes Father COPD Mother Relation Name Status Comments Father Mother Alive Social History Tobacco Use Types Packs/Day Years Used Date Smoking Tobacco: Every Day Cigarettes 0.8 23 Started: 2002 Smokeless Tobacco: Never Tobacco Cessation:Ready to Q uit: Not Asked; Counseling Given: Not Answered AUDIT-C Answer Date Recorded Q1: How often do you have a drink containing alc ohol? Monthly or less 04/21/2023 Q2: How many drinks containi ng alcohol do you have on a typical day when you are drinking? 1 or 2 04/21/2023 Q3: How often do you have si x or more drinks on one occasion? Never 04/21/2023 PHQ-2 Answer Date Recorded PHQ-2 Total Score (If total score is 3 or more points, staff should administer the PHQ-9) 0 04/21/2023 Personal Safety Answer Date Recorded Have you ever been in or are you currently in a harmful physical or emotional relationship or is someone making you feel afraid or unsafe? Denies 10/12/2023 Sex and Gender Information Value Date Recorded Sex Assigned at Not on file Legal Sex Male 2:58 PM RECYCLING TECHNICIAN Gender Identity Not on file Sexual Orientation Not on file Last Filed Vital Signs Vital Sign Reading Time Taken Comments Blood Pressure 130/82 07/14/2025 4:05 PM RECYCLING TECHNICIAN Pulse 84 07/14/2025 4:05 PM RECYCLING TECHNICIAN Temperature 36.3 C (97.3 F) 07/14/2025 4:05 PM RECYCLING TECHNICIAN Respiratory Rate 18 07/14/2025 4:05 PM RECYCLING TECHNICIAN Oxygen Saturation 97% 07/14/2025 4:05 PM RECYCLING TECHNICIAN Inhaled Oxygen Concentration - - Weight 76.6 kg (168 lb 14.4 oz) 07/14/2025 4:05 PM RECYCLING TECHNICIAN Height 167.6 cm (5' 6) 07/14/2025 4:05 PM RECYCLING TECHNICIAN Body Mass Index 27.26 07/14/2025 4:05 PM RECYCLING TECHNICIAN Plan of Treatment Health Maintenance Due Date Last Done Comments Colon Cancer Screening-Colonoscopy 1976 Hepatitis C Screening 1976 DTaP/Tdap/Td Vaccine (1 - Tdap) 1987 Hepatitis B Screening 1994 Pneumococcal vaccine <65 (1 of 2 - PCV) 1995 Depression Screening 04/21/2024 04/21/2023 Regular Well Visit/Exam 18-64 04/21/2024 04/21/2023 Influenza Vaccine (#1) 2025 Procedures Procedure Name Priority Date/Time Associated Diagnosis Comments POC INFLUENZA A/B, COVID-19 ANTIGEN Routine 07/14/2025 4:23 PM RECYCLING TECHNICIAN Upper respiratory tract infection, unspecified type from Last 3 Months Results * POC Influenza A/B, COVID-19 antigen (07/14/2025 4:23 PM RECYCLING TECHNICIAN) Influenza A Ag, POC Negative Negative [facility] Influenza B Ag, POC Negative Negative [facility] COVID-19 Ag POC Presumptive Negative Presumptive Negative, Invalid [facility] Nasal 07/14/2025 4:23 PM RECYCLING TECHNICIAN us Isac Zuluaga NP POINT OF CARE TEST OR DERABLES Final Result Performing Organization Address City/State/[facility] Co de Phone Number [facility] [address] [place] [address] from Last 3 Months Insurance [facility] Advance Directives For more information, please contact: [phone] * Full Code (Latest Code Status on File) Date Activated Date Inactivated Comments 05/14/2021 5:05 PM 05/17/2021 1:59 PM Care Teams Ross Furnace Operator Relationship Specialty Start Date End Date Mell Schaeffer NP PCP - General Internal Medicine 04/21/23 Unknown, Notinfile 04/21/23
--- OUTSIDE RECORDS SUMMARY | 2025-08-09 09:59 | XMS_ITS | Data Portability ---
Author Organization [facility] JERRYAmeya Address [address] [place] [address] Care Team Providers Care Back Panel Padder Name Role Phone CHANNING JAMISON Primary Care Provider Unavailabl e Assessment Encounter Date Assessment Date Assessment LastModified by Organization Details LastModified Time 03/06/2025 03/06/2025 49 year old male with past medical history of obesity, smoking, here for annual exam. Not available 03/02/2025 13:32:16 04/27/2025 04/27/2025 49 year old male with past medical history of obesity, smoking, here for f/u in office. Not available 04/23/2025 13:50:26 05/26/2025 05/26/2025 49 year old male with past medical history of diabetes, hyperlipidemi a, obesity, smoking, here for dm, hld f/u. Not available 05/26/2025 12:30:33 Plan of Treatment Reminders Order Date Submit Date Provider Last Modified By Organization Details Last Modified Time Details Appointments None recorded. Lab HbA1c (hemoglobin A1c), blood 2024 025 In-Office Order, Internal Use Only DO Not Attach Compendium DO Not Attach Compendium, Do Not Delete/merge, [id number] 16:22:24 HbA1c (hemoglobin A1c), blood 2024 025 [facility], [address], [address], [place], [address], 01:08:15 lipid panel, serum 2024 025 [facility], [address], [address], [place], [address], 08:26:17 Referral registered dietitian referral 2024 [email or web address] [id number] [facility] Stock Preparation Operator Nutrition Dietitian, [address], [place], [address], 16:59:47 Procedures None recorded. Surgeries None recorded. Imaging None recorded. Medication Orders metformin ER 500 mg tablet,exte nded release 24 hr [address] [id number], [address] [place], [place], [id number], 5 16:34:19 atorvastati n 20 mg tablet [address] [facility][id number], [address] [place], [place], [id number], 5 16:34:19 metformin ER 500 mg tablet,exte nded release 24 hr 2024 [facility] #[id number], [address] [place], [place], [id number], 5 16:12:42 atorvastati n 20 mg tablet 2024 025 [facility] #[id number], [address] [place], [place], [id number], 5 16:12:40 metformin 500 mg tablet 2024 [id number], [address] [place], [place], [id number], 5 16:06:34 Contour Plus Test Strip 2024 [id number], [address] [place], [place], [id number], 18:12:24 atorvastati n 40 mg tablet 2024 [facility] #45990, [address] [place], [place], [id number], 16:06:48 nicotine 14 mg/24 hr daily transdermal patch 2024 [facility] #52623, [address] [place], [place], [id number], 09:56:38 Patient TargetsNo targets recorded. Patient Instructions Encounter Date Encounter Id Patient Instructions Last Modified By Organization Details Last Modified Time 03/06/2025 [id number] A healthy lifestyle: care instructions Not available 03/06/2025 09:54:06 Quitting Tobacco: Care Instructions Not available 03/06/2025 09:54:06 I certify that I was present for case discussion in the Family Medicine preceptor room at the time of this encounter. I have reviewed the note and agree with the findings, assessment, and plan except as I have documented below. Follow up as listed. All labs/imaging/con sults to be followed by the ordering provider. Capt Dallin, [facility], Staff Physician. [email or web address] Not available 03/10/2025 16:44:27 03/14/2025 [id number] type 2 diabetes: care instructions [email or web address] Not available 03/14/2025 18:04:23 agree w plan and treatment Dr. Tara [email or web address] Not available 03/14/2025 17:53:03 04/27/2025 [id number] A healthy lifestyle: care instructions Not available 04/27/2025 16:17:15 I was present in the clinic to discuss this patient at the time of the visit. I agree with the documented assessment and plan. MD lavelle [email or web address] Not available 04/27/2025 16:28:06 05/26/2025 [id number] A healthy lifestyle: care instructions Not available 05/26/2025 16:22:24 Quitting Tobacco: Care Instructions Not available 05/26/2025 16:22:24 I was present and available in the family medicine clinic to discuss the patient's care during the appointment and the case was discussed with me. I agree with the resident's assessment and plan as documented. HL [email or web address] Not available 05/27/2025 12:29:52 Reason for Referral Registered Dietitian Sudha salmeron for Type 2 diabetes mellitus Referring Physician: Katherine Strickland, Office Support Assistant, Encounter Date: 03/14/2025 Results Created Date Observation Date Name Description Value Unit Range Abnormal Flag Note LastModifiedBy Organization Detail LastModifiedTime 01/04/20 25 01/03/2025 [facility] 1999 panel - Serum or Plasm a glucose [mass/volume ] in serum or plasma 207 text: 70 - 99 mg/dL high Not Available Not Available 03/14/2025 05:32:59 01/04/20 25 01/03/2025 Compr ehens [facility] 1999 panel - Serum or Plasm a urea nitrogen [mass/volume ] in serum or plasma 9 text: 7 - 18 mg/dL Not Available Not Available 03/14/2025 05:32:59 01/04/20 25 01/03/2025 Compr ehens carlos metab olic 1999 panel - Serum or Plasm a creatinine [mass/volume ] in serum or plasma 1.1 text: 0.7 - 1.3 mg/dL Not Available Not Available 03/14/2025 05:32:59 01/04/20 25 01/03/2025 Compr ehens [facility]los metab olic 1999 panel - Serum or Plasm a sodium [moles/volum e] in serum or plasma 136 text: 136 - 145 mmol/L Not Available Not Available 03/14/2025 05:32:59 01/04/20 25 01/03/2025 Compr ehens [facility]los metab olic 1999 panel - Serum or Plasm a potassium [moles/volum e] in serum or plasma 3.9 text: 3.5 - 5.1 mmol/L Not Available Not Available 03/14/2025 05:32:59 01/04/20 25 01/03/2025 Compr ehens carlos metab olic 1999 panel - Serum or Plasm a chloride [moles/volum e] in serum or plasma 104 text: 97 - 115 mmol/L Not Available Not Available 03/14/2025 05:32:59 01/04/20 25 01/03/2025 Compr ehens carlos metab olic 2000 panel - Serum or Plasm a carbon dioxide, total [moles/volum e] in serum or plasma 26.9 text: 21 - 32 mmol/L Not Available Not Available 03/14/2025 05:32:59 01/04/20 25 01/03/2025 Compr ehens carlos metab olic 2000 panel - Serum or Plasm a calcium [mass/volume ] in serum or plasma 9.1 text: 8.5 - 10.1 mg/dL Not Available Not Available 03/14/2025 05:32:59 01/04/20 25 01/03/2025 Compr ehens carlos metab olic 2000 panel - Serum or Plasm a bilirubin.to janine [mass/volume ] in serum or plasma 0.4 text: 0.2 - 1.2 mg/dL THIS ASSAY IS NOT RECOM JUDY D FOR PATIE NTS UNDER GOING TREAT MENT WITH ELTRO MBOPA G DUE TO THE POTEN TIAL FOR FALSE LY ELEVA INO RESUL TS. Not Available Not Available 03/14/2025 05:32:59 01/04/20 25 01/03/2025 Compr ehens carlos metab olic 2000 panel - Serum or Plasm a protein [mass/volume ] in serum or plasma 7.6 text: 6.4 - 8.2 g/dL Not Available Not Available 03/14/2025 05:32:59 01/04/20 25 01/03/2025 Compr ehens carlos metab olic 2000 panel - Serum or Plasm a albumin [mass/volume ] in serum or plasma 3.5 text: 3.4 - 5.0 g/dL Not Available Not Available 03/14/2025 05:32:59 01/04/20 25 01/03/2025 Compr ehens carlos metab olic 2000 panel - Serum or Plasm a aspartate aminotransfe rase [enzymatic activity/vol ume] in serum or plasma 16 U/L low: 15U/Lh igh: 37U/L Not Available Not Available 03/14/2025 05:32:59 01/04/20 25 01/03/2025 Compr ehens carlos metab olic 1999 panel - Serum or Plasm a alanine aminotransfe rase [enzymatic activity/vol ume] in serum or plasma 31 U/L low: 16U/Lh igh: 60U/L Not Available Not Available 03/14/2025 05:32:59 01/04/20 25 01/03/2025 Compr ehens carlos metab olic 1999 panel - Serum or Plasm a alkaline phosphatase [enzymatic activity/vol ume] in serum or plasma 122 U/L low: 50U/Lh igh: 136U/L Not Available Not Available 03/14/2025 05:32:59 01/04/20 25 01/03/2025 Compr [facility] 1999 panel - Serum or Plasm a anion gap in serum or plasma by calculation 5.1 text: 2 - 10 mmol/L Not Available Not Available 03/14/2025 05:32:59 01/04/20 25 01/03/2025 Compr [facility]le[facility] o[facility] 1999 panel - Serum or Plasm a urea nitrogen/cre atinine [mass ratio] in serum or plasma 8.2 low: 6high: 26 Not Available Not Available 03/14/2025 05:32:59 01/04/20 25 01/03/2025 [facility] carlos Rawlemon olic 1999 panel - Serum or Plasm a albumin/glob ulin [mass ratio] in serum or plasma 0.9 text: 1.0 - 2.0 ratio low Not Available Not Available 03/14/2025 05:32:59 01/04/20 25 01/03/2025 Compr [facility] car[facility] Rawlemon olic 1999 panel - Serum or Plasm a glomerular filtration rate [volume rate/area] in serum, plasma or blood by creatinine-b ased formula (CKD-epi 2020)/1.73 sq M 83 text: >90 mL/min /1.73 M2 low NOTE: eGFR is not calcu lated for patie nts <18 years of age or gende r unkno wn. This is an estim ated GFR calcu latio n using the new CKD EPI creat inine equat ion witho ut race and so does not requi re a corre ction facto r for race. This estim ated GFR shoul d not be used for calcu latin g drug doses . Not Available Not Available 03/14/2025 05:32:59 01/04/20 25 01/03/2025 Compr ehens carlos metab olic 2000 panel - Serum or Plasm a interpretati on and review of laboratory results Abnorm al Not Available Not Available 05:32:59 01/04/20 25 01/03/2025 CBC W Auto Diffe renti al panel - Blood leukocytes [#/volume] in blood by automated count 13.54 text: 4.5 - 11.0 x10'3/ uL high Not Available Not Available 03/14/2025 05:32:59 01/04/20 25 01/03/2025 CBC W Auto Diffe renti al panel - Blood erythrocytes [#/volume] in blood by automated count 5.43 text: 4.70 - 6.10 x10'6/ uL Not Available Not Available 03/14/2025 05:32:59 01/04/20 25 01/03/2025 CBC W Auto Diffe renti al panel - Blood hemoglobin [mass/volume ] in blood 16.8 text: 14.0 - 18.0 g/dL Not Available Not Available 03/14/2025 05:32:59 01/04/20 25 01/03/2025 CBC W Auto Diffe renti al panel - Blood hematocrit [volume fraction] of blood by calculation 47.9 % low: 43%hig h: 54% Not Available Not Available 03/14/2025 05:32:59 01/04/20 25 01/03/2025 CBC W Auto Diffe renti al panel - Blood MCV [entitic mean volume] in red blood cells 88.2 text: 80.0 - 94.0 fL Not Available Not Available 03/14/2025 05:32:59 01/04/20 25 01/03/2025 CBC W Auto Diffe renti al panel - Blood MCH [entitic mass] 30.9 pg low: 27pghi gh: 31pg Not Available Not Available 03/14/2025 05:32:59 01/04/20 25 01/03/2025 CBC W Auto Diffe renti al panel - Blood MCHC [entitic mass/volume] in red blood cells 35.1 text: 32.0 - 36.0 g/dL Not Available Not Available 03/14/2025 05:32:59 01/04/20 25 01/03/2025 CBC W Auto Diffe renti al panel - Blood RDW 11.9 % low: 11.5%h igh: 14.5% Not Available Not Available 03/14/2025 05:32:59 01/04/20 25 01/03/2025 CBC W Auto Diffe renti al panel - Blood platelets [#/volume] in blood 314 text: 130 - 400 x10'3/ uL Not Available Not Available 03/14/2025 05:32:59 01/04/20 25 01/03/2025 CBC W Auto Diffe renti al panel - Blood platelet [entitic mean volume] in blood 8.1 text: 9.3 - 12.2 fL low Not Available Not Available 03/14/2025 05:32:59 01/04/20 25 01/03/2025 CBC W Auto Diffe renti al panel - Blood differential cell count method - blood AUTOMA INO DIFFER ENTIAL Not Available Not Available 05:32:59 01/04/20 25 01/03/2025 CBC W Auto Diffe renti al panel - Blood neutrophils/ leukocytes in blood by automated count 63.6 % Not Available Not Available 02/15 05:32:59 01/04/20 25 01/03/2025 CBC W Auto Diffe renti al panel - Blood lymphocytes/ leukocytes in blood by automated count 26.2 % Not Available Not Available 02/15 05:32:59 01/04/20 25 01/03/2025 CBC W Auto Diffe renti al panel - Blood monocytes/le ukocytes in blood by automated count 7.5 % Not Available Not Available 02/15 05:32:59 01/04/20 25 01/03/2025 CBC W Auto Diffe renti al panel - Blood eosinophils/ leukocytes in blood by automated count 1.6 % Not Available Not Available 02/15 05:32:59 05/20/01/03/2025 CBC W Auto Diffe renti al panel - Blood basophils/le ukocytes in blood by automated count 0.5 % Not Available Not Available 02/15 05:32:59 01/04/20 25 01/03/2025 CBC W Auto Diffe renti al panel - Blood immature granulocytes /leukocytes in blood by automated count 0.6 % Not Available Not Available 02/15 05:32:59 01/04/20 25 01/03/2025 CBC W Auto Diffe renti al panel - Blood neutrophils [#/volume] in blood 8.6 text: 1.80 - 7.70 x10'3/ uL high Not Available Not Available 03/14/2025 05:32:59 01/04/20 25 01/03/2025 CBC W Auto Diffe renti al panel - Blood lymphocytes [#/volume] in blood 3.55 text: 1.00 - 4.80 x10'3/ uL Not Available Not Available 03/14/2025 05:32:59 01/04/20 25 01/03/2025 CBC W Auto Diffe renti al panel - Blood monocytes [#/volume] in blood 1.02 text: 0.30 - 0.82 x10'3/ uL high Not Available Not Available 03/14/2025 05:32:59 01/04/20 25 01/03/2025 CBC W Auto Diffe renti al panel - Blood eosinophils [#/volume] in blood 0.22 text: 0.04 - 0.54 x10'3/ uL Not Available Not Available 03/14/2025 05:32:59 01/04/20 25 01/03/2025 CBC W Auto Diffe renti al panel - Blood basophils [#/volume] in blood 0.07 text: 0.01 - 0.08 x10'3/ uL Not Available Not Available 03/14/2025 05:32:59 01/04/20 25 01/03/2025 CBC W Auto Diffe renti al panel - Blood immature granulocytes [#/volume] in blood 0.08 text: 0.00 - 0.49 x10'3/ uL Not Available Not Available 03/14/2025 05:32:59 01/04/20 25 01/03/2025 CBC W Auto Diffe renti al panel - Blood interpretati on and review of laboratory results Abnorm al Not Available Not Available 05:32:59 03/06/2003/07/2025 HEMOG LOBIN A1C hemoglobin A1C 9.0 % 4.8-5. 6 above high normal Predi abete s: 5.7 - 6.4 Diabe ej: >6.4 Glyce hemant contr ol for adult s with diabe ej: <7.0 Not Available [facility] ([facility]) [address] [place], [address], 03/07/2025 01:08:15 03/06/20 25 03/07/2025 LIPID PANEL cholesterol, total 200 mg/dL 100-19 9 above high normal Not Available [facility] ([facility]) [address] [place], [address], 03/07/2025 08:26:17 03/06/20 25 03/07/2025 LIPID PANEL triglyceride s 193 mg/dL 0-149 above high normal Not Available [facility] ([facility]) [address] [place], [address], 03/07/2025 08:26:17 03/06/20 25 03/07/2025 LIPID PANEL HDL cholesterol 32 mg/dL >39 below low normal Not Available [facility] ([facility]) [address] [place], [address], 03/07/2025 08:26:17 03/06/20 25 03/07/2025 LIPID PANEL VLDL cholesterol lucretia 35 mg/dL 5-40 Not Available [facility] ([facility]) [address] [place], [address], 03/07/2025 08:26:17 03/06/20 25 03/07/2025 LIPID PANEL LDL chol calc ([facility]) 133 mg/dL 0-99 above high normal Not Available [facility] ([facility]) [address] [place], [address], 03/07/2025 08:26:17 05/26/2005/26/2025 HbA1c (hemo globi n A1c), blood HbA1C 8.3 % Not Available In-Office Order Internal Use Only DO Not Attach Compendium DO Not Attach Compendium, Do Not Delete/merge, [id number] 05/26/2025 16:13:54 07/14/2007/14/2025 rapid SARS CoV + SARS CoV 2 Ag, QL IA, respi rator y speci men influenza A Ag, POC Negati ve text: negati ve Not Available Not Available 07/21/2025 00:17:13 07/14/2007/14/2025 rapid SARS CoV + SARS CoV 2 Ag, QL IA, respi rator y speci men influenza B Ag, POC Negati ve text: negati ve Not Available Not Available 07/21/2025 00:17:13 07/14/2007/14/2025 rapid SARS CoV + SARS CoV 2 Ag, QL IA, respi rator y speci men covid-19 Ag POC Presum ptive Negati ve text: presum ptive negati ve, invali d Not Available Not Available 07/21/2025 00:17:13 07/14/2007/14/2025 rapid SARS CoV + SARS CoV 2 Ag, QL IA, respi rator y speci men lab interpretati on Normal Not Available Not Available 12/2024 00:17:13 Result Notes None recorded. Problems Name Problem SNOMED Code Status Onset Date Resolution Date Notes Provider Name and Address Organization Details Recorded Time Diverticulitis 579977405 Active 2019 Ulises boles, [place] - [facility] 0 14:11:07 Smoker 77190067 Active 2022 Deondre b[place], [place] - [facility] 3 16:42:14 Obesity 029928887 Active 2022 Deond[place] [facility] 16:42:19 Abscess of skin and/or subcutaneous tissue 08531559 Active 2022 Deondre [place], [place] [facility] 16:42:22 Problem Notes None recorded. Procedures Surgical History Date Name Laterality Status Provider Name and Address Organization Details Recorded Time 11/30/19 24 Flexible Laryngoscopy completed Gustavo Barnes MD [address] [facility], [place], [address], [facility] 11/30/2023 11:31:17 01/02/20 22 TYMPANOSTOMY, TUBE INSERTION (SURG) completed SAM MORALES MD Attn: Accounting,[address] [facility], [place], [address], [facility] 01/30/2022 16:14:01 Imaging Results None recorded. Procedure Notes None recorded. Medical Equipment None Reported. Allergies No known drug allergies Medications Name Sig Start Date Stop Date Status Note LastModified by Organization Details LastModified Time amoxicillin 500 mg capsule 04/27 completed Not Available Not Available Not Available atorvastati n 40 mg tablet TAKE 1 TABLET BY MOUTH EVERY DAY 04/27 completed Not Available Not Available Not Available metformin 500 mg tablet TAKE 1 TABLET BY MOUTH TWICE DAILY 04/27 completed Not Available Not Available Not Available promethazin e-DM 6.25 mg-15 mg/5 mL oral syrup TAKE 5 ML BY MOUTH FOUR TIMES DAILY NEEDED FOR COUGH 04/27 completed Not Available Not Available Not Available neomycin-po lymyxin-hyd rocort 3.5 mg/mL-10,00 0 unit/mL-1 % ear solution INSTILL 4 DROPS INTO LEFT EAR EVERY 8 HOURS 11/11 completed Not Available Not Available Not Available doxycycline hyclate 100 mg capsule TAKE 1 CAPSULE BY MOUTH TWICE DAILY FOR 10 DAYS 03/03 completed Not Available Not Available Not Available piperacilli n-tazobacta m 40.5 gram intravenous solution 09/01 completed Not Available Not Available Not Available atorvastati n 20 mg tablet Take 1 tablet every day by oral route for 30 days, for hyperlipi demia. 2024 active Not Available Not Available Not Avai lable nicotine 14 mg/24 hr daily transdermal patch Apply 1 patch every day by transderm al route as needed for 30 days, for smoking cessation . 2024 active Not Available Not Available Not Avai lable clindamycin HCl 300 mg capsule TAKE 1 CAPSULE BY MOUTH THREE TIMES A DAY, STOP IF DIARRHEA OCCURS 11/11 completed Not Available Not Available Not Available Normal Saline Flush 0.9 % injection syringe 11/11 completed Not Available Not Available Not Available azithromyci n 250 mg tablet TAKE 2 TABLETS (500 MG) BY ORAL ROUTE ONCE DAILY FOR 1 DAY THEN 1 TABLET (250 MG) BY ORAL ROUTE ONCE DAILY FOR 4 DAYS 04/27 completed Not Available Not Available Not Available benzonatate 200 mg capsule TAKE 1 CAPSULE BY MOUTH THREE TIMES DAILY NEEDED FOR COUGH 04/27 completed Not Available Not Available Not Available clarithromy kong 500 mg tablet TAKE 1 TABLET BY MOUTH TWICE DAILY FOR 10 DAYS 03/03 completed Not Available Not Available Not Available prednisone 20 mg tablet TAKE 2 TABLETS BY MOUTH DAILY FOR 5 DAYS 04/27 completed Not Available Not Available Not Available metronidazo le 500 mg tablet TAKE 1 TABLET BY MOUTH EVERY 8 HOURS FOR 10 DAYS 11/11 completed Not Available Not Available Not Available ciprofloxac in 500 mg tablet TAKE 1 TABLET BY MOUTH EVERY 12 HOURS FOR 10 DAYS 11/11 completed Not Available Not Available Not Available hydrocodone 10 mg-acetamin ophen 325 mg tablet 11/11 completed Not Available Not Available Not Available peg-electro lyte solution 420 gram oral solution MIX AND DRINK 8OZ BY MOUTH EVERY 10 MINUTES UNTIL CLEAR 11/11 completed Not Available Not Available Not Available amoxicillin 500 mg tablet 09/01 completed Not Available Not Available Not Available prednisone 10 mg tablets in a dose pack TAKE BY MOUTH DIRECTED 11/11 completed Not Available Not Available Not Available oxycodone-a cetaminophe n 5 mg-325 mg tablet TAKE 1 TABLET BY MOUTH EVERY 6 HOURS NEEDED FOR PAIN 11/11 completed Not Available Not Available Not Available gentamicin 0.3 % eye drops 11/11 completed Not Available Not Available Not Available benzonatate 100 mg capsule TAKE 1 CAPSULE BY MOUTH THREE TIMES DAILY FOR 10 DAYS 04/27 completed Not Available Not Available Not Available prednisone 50 mg tablet TAKE 1 TABLET BY MOUTH DAILY FOR 5 DAYS 11/11 completed Not Available Not Available Not Available diclofenac sodium 75 mg tablet,cal yed release 11/11 completed Not Available Not Available Not Available codeine 10 mg-guaifene sin 100 mg/5 mL oral liquid 11/11 completed Not Available Not Available Not Available mupirocin 2 % topical ointment APPLY TO AFFECTED AREA 3 TIMES A DAY 11/11 completed Not Available Not Available Not Available prednisone 5 mg tablets in a dose pack FOLLOW PACKAGE DIRECTION S 11/11 completed Not Available Not Available Not Available methylpredn isolone 4 mg tablets in a dose pack FOLLOW PACKAGE DIRECTION S 04/27 completed Not Available Not Available Not Available neomycin 500 mg tablet 12/17 completed Not Available Not Available Not Available albuterol sulfate HFA 90 mcg/actuati on aerosol inhaler INHALE 1 PUFF EVERY 6 HOURS NEEDED FOR WHEEZING OR SHORTNESS OF BREATH active Not Available Not Available No t Available ondansetron 4 mg disintegrat ing tablet 11/11 completed Not Available Not Available Not Available cefdinir 300 mg capsule TAKE 1 CAPSULE BY MOUTH EVERY 12 HOURS 09/01 completed Not Available Not Available Not Available fluticasone propionate 50 mcg/actuati on nasal spray,suspe nsion SHAKE LIQUID AND USE 1 SPRAY IN EACH NOSTRIL DAILY active Not Available Not Available No t Available metformin ER 500 mg tablet,exte nded release 24 hr TAKE 2 TABLETS BY MOUTH TWICE DAILY DIRECTED FOR DIABETES active Not Available Not Available No t Available doxycycline hyclate 100 mg tablet TAKE 1 TABLET BY MOUTH TWICE DAILY FOR 7 DAYS 11/26 completed Not Available Not Available Not Available loratadine 10 mg tablet TAKE 1 TABLET BY MOUTH DAILY 09/01 completed Not Available Not Available Not Available Microlet Lancet USE TO TEST blood sugar daily 2024 active Not Available Not Available Not Avai lable amoxicillin 875 mg-potassiu m clavulanate 125 mg tablet TAKE 1 TABLET BY MOUTH TWICE DAILY FOR 7 DAYS 09/01 completed Not Available Not Available Not Available azithromyci n 500 mg tablet 09/01 completed Not Available Not Available Not Available Ciprodex 0.3 %-0.1 % ear drops,suspe nsion INSTILL 4 DROPS INTO AFFECTED EAR(S) BY OTIC ROUTE 2 TIMES PER DAY FOR 7 DAYS 11/11 completed Not Available Not Available Not Available Heparin Lock Flush (Porcine) (PF) 100 unit/mL intravenous syringe 11/11 completed Not Available Not Available Not Available OneTouch Ultra Blue Test Strip 09/01 completed Not Available Not Available Not Available Contour Plus Test Strip USE TO TEST TWICE DAILY active Not Available Not Available No t Available Contour Plus Blue Meter USE DIRECTED TO CHECK BLOOD SUGAR active Not Available Not Available No t Available Vitals Date Recorded Body height Body mass index (BMI) Body weight Body temperature Pain severity - 0-10 verbal numeric rating [Score] - Reported Heart rate Systolic And Diastolic Provider Name and Address Organization Details Last Updated DateTime 4 166.37 cm 26.9 kg/m2 48510.1 5 g 98 [degF] 0 86 /min 143/88 mm[Hg] Kings Bowles [place] [facility] 4 11:21:59 Date Recorded Body height Body mass index (BMI) Body weight Heart rate Oxygen saturation Body temperature Systolic And Diastolic Provider Name and Address Organization Details Last Updated DateTime 5 166.37 cm 27.3 kg/m2 04083.1 3 g 89 /min 97 % 97.8 [degF] 119/82 mm[Hg] Cris Arnold [place] [facility] 5 09:41:02 Date Recorded Body height Body mass index (BMI) Body weight Body temperature Oxygen saturation Heart rate Systolic And Diastolic Provider Name and Address Organization Details Last Updated DateTime 5 166.37 cm 28.2 kg/m2 40389.2 9 g 97.5 [degF] 98 % 91 /min 133/82 mm[Hg] Roberto Modi [place] [facility] 5 17:07:49 Date Recorded Body height Body mass index (BMI) Body weight Heart rate Oxygen saturation Systolic And Diastolic Provider Name and Address Organization Details Last Updated DateTime 5 166.37 cm 27.4 kg/m2 77321.6 8 g 90 /min 97 % 117/77 mm[Hg] Damon Escalera [place] [facility] 5 15:38:59 Date Recorded Body height Body mass index (BMI) Body weight Body temperature Oxygen saturation Heart rate Systolic And Diastolic Provider Name and Address Organization Details Last Updated DateTime 5 166.37 cm 27.5 kg/m2 25984.8 7 g 98 [degF] 96 % 92 /min 121/81 mm[Hg] Bouchra Quinteros [place] [facility] 16:06:59 Social History Question Answer Notes LastModified by Organizat ion Details LastModified Time Tobacco Smoking Status Current Every Day Smoker Schuyler Noel CMA null, [place] [facility] 07/26/2018 16:34:36 Do You Have An Advance Directive? No Information n ot available 12/17/2021 In The 14 Days Before Symptom Onset, Have You Had Close Contact With A Laboratory-confirm ed COVID-19 While That Case Was Ill? No Information n ot available 12/17/2021 In The 14 Days Before Symptom Onset, Have You Had Close Contact With A Person Who Is Under Investigation For COVID-19 While That Person Was Ill? No Information not available 12/17/2021 Have You Been To An Area Known To Be High Risk For COVID-19? No Information not available 12/17/2021 What Was The Date Of Your Most Recent Tobacco Screening? 05/26/2025 [email or web address] Information not available 05/26/2025 How Much Tobacco Do You Smoke? 0.5 PPD [email or web address] Information not available 05/27/2019 Has Tobacco Cessation Counseling Been Provided? Yes Information not available 10/09/2021 On What Date Was Tobacco Cessation Counseling Provided? 03/06/2025 [email or web address] Information not available 03/06/2025 How Many Years Have You Smoked Tobacco? 22 [email or web address] Information not available 07/26/2018 Sex: Unknown Functional Status Question Answer Note LastModified by Organizat ion Details LastModified Time What is your level of alcohol consumption? Occasional Information not available 10/09/2021 Do you or have you ever used smokeless tobacco? Never used smokeless tobacco Information not available 05/27/2019 Do you or have you ever used e-cigarettes or vape? Never used electronic cigarettes Information not available 05/27/2019 Mental Status None recorded. Family History Nothing Reported. Medical History No medical history recorded. Past Encounters Encounter ID Performer Location Encounter Start Date Encounter Closed Date Diagnosis/Indication Diagnosis SNOMED-CT Code Diagnosis ICD10 Code Diagnosis IMO Codes Diagnosis Note [id number] Radha Camacho MD [place] [address] [address] 07/26/2018 16:21:48 08/05/2018 09:15:06 Diverticular disease of colon 795755773 K57.30 3wks prior was dx with diverticul itis given abx and was d/c. 2 weeks ago diverticul itis with abcess. Recieved IR drainage. 14d course of IV abx, finished 07/23/18 on zosyn. Picc pulled. Pt asymptomat ic with normal BM and w/o abd pain. Reports increasing fiber into diet. Has follow up with surgery the next two weeks.- Paper feels ready to return to work. Paper work signed- referral to GI for cscope- has scheduled apt with surgery- understand s diverticul itis disease and diet- ED precaution s provided. [id number] Radha Camacho MD [place] [address] [address] 02/16/2019 11:04:11 04/13/2019 10:28:55 Acute right otitis media 371143244 H66.91 RTC in 2 weeks for f/u Perforatio n of tympanic membrane 02997264 H72.91 Pt counselled to keep ears dry.If hearing does not return to normal in 2-4 weeks, f/u in clinic. [id number] OH BAUER MD [place] [address] [address] 04/25/2019 14:38:14 04/26/2019 16:15:21 Pain of right shoulder joint 4984434005 0733278 M25.511 Acute right shoulder and axillary pain+Radia tion to the hand+Assoc iated brief weakness/n umbness in the hand This occurred while he was driving and reached back with the RUE quickly. Initially severe/sh chey, now improved/ aching x~2 wks.No residual weakness, numbness, tingling. Avoiding use of the limb. Exam non-specif ic, low suspicion for surgically significan t injury, suspect muscle strain subscap and/or pectoralis - ice/heat per pt preference - advised to work on ROM, avoid frozen shoulder- given exercises: Rx3 rehab, start with stretches, advance to strengthen ing as tolerated- RTC 3-4 wks fu w/ PCP Dr. Fitzgerald- consider imaging vs PT as indicated at that time [id number] Radha Camacho MD [facility] [address] [facility] [address] [place] [address] 05/27/2019 13:55:14 05/30/2019 11:34:28 Pain of shoulder region 77487320 M25.519 possible adhesive capsulitis vs. unspeicfic rotator cuff pathologyr ecommended diclofenac usePT order placedwill consider steroid injection in shoulder if no improvemen twill consider ortho referral if lack of improvemen tf/u in 4 weeks [id number] Rama Alarcon MD [facility] [address] [facility] [address] [place] [address] 11/15/2019 12:49:03 11/15/2019 16:41:52 Diverticulitis 046293281 K57.92 Diverticul itis Patient 44-year-ol d gentleman with past medical history of diverticul itis episodes. Per chart review patient was seen in this clinic 07/26/2018 for hospital follow-up regarding diverticul itis with abscess. Patient was status post IR drainage at that time. Patient states she has had outpatient diverticul itis management before managed with ciprofloxa kong as well as metronidaz ole. Discussed diagnostic possibilit ies with patient including viral gastroente ritis, diverticul itis, intra-abdo cody infection not otherwise specified. Patient's history taken today is consistent with diverticul itis. Discussed management options with patient. As patient has had episodes of diverticul itis in the past and did respond to outpatient oral medication s, reasonable to treat the presumed diverticul itis medication s he is used before ciprofloxa kong as well as metronidaz ole. -Ciproflox acin 500 mg every 12 hours for 10 days -Metronida zole 500 mg every 8 hours for 10 days -Advised patient of the progressio n of his illness while on antibiotic s advised him that his symptoms should be resolving on approximat julio day 3 of treatment and should be almost complete resolved by day 7 of treatment -Provided patient strict ER precaution s for new severe worsening abdominal pain, worsening diarrhea, significan t blood in stool -Patient voiced understand ing and was amenable to trial of outpatient medication s for his presumed diverticul itis [id number] Rama Alarcon MD [place] [address] [address] 04/10/2020 13:13:13 04/11/2020 12:43:26 Diverticulitis 012778748 K57.92 chronic, symtpoms of abdominal pain and cramping-C iprofloxac in 500 mg every 12 hours for 10 days -Metronida zole 500 mg every 8 hours for 10 days -Advised patient of the progressio n of his illness while on antibiotic s advised him that his symptoms should be resolving on approximat julio day 3 of treatment and should be almost complete resolved by day 7 of treatment -Provided patient strict ER precaution s for new severe worsening abdominal pain, worsening diarrhea, significan t blood in stool -Patient voiced understand ing and was amenable to trial of outpatient medication s for his presumed diverticul itis-Will send for colonosocp y referral to [facility], has not been completed when referred in past-f/u as needed [id number] Katie Vasquez MD [address] [address] 08/09/2020 08:59:51 08/13/2020 08:10:32 Lesion of genitalia 340025597 N50.9 acute, uncontroll ed. Most likely folliculit is with associated cellulitis . Located in right inguinal regionno concern for fourniere gangrenewi ll send with clindamyci n 300mg QID for 5 dayscounse led on signs of systemic infections trongly encouraged not to try to discharge medication patient does desire STI testing, will test urinef/u as needed if Sx persist after 5 days, extend abx prior to switching [id number] [facility]AD[facility] [address] [address] 10/09/2021 10:04:18 10/10/2021 08:38:52 Bilateral chronic serous otitis 396546815 H65.23 Pt is 46 yo with hx recurrent otitis media infections presents for visit f/u- No signs or symptoms of acute infection- Currently on day 3-4/7 of Augmentin that was given at the - Discussed the effect of smoke on the nasopharyn x and eustachian tube. Advised pt to stop smoking. Counseled pt on smoking cessation and provided him with options to help quitting. Pt is in the prcontempl ating state.- Discussed the risk of developing Abx resistance with recurrent Abx use- ENT referral- ER precaution s given.- Return to office in 1 month for f/u Perforatio n of tympanic membrane 13383030 H72. Pt has perforated right TM on PE.- See above [id number] [facility] [address] [place] [address] 11/11/2021 14:04:38 11/12/2021 14:16:32 Bilateral chronic serous otitis 422678386 H65.23 [id number] Gustavo Barnes MD [facility] [address] [place] [address] 12/17/2021 12:38:38 12/17/2021 15:38:59 Bilateral chronic serous otitis 627991564 H65.23 [id number] Gustavo Barnes MD [facility] [address] [place] [address] 01/09/2022 15:56:08 01/10/2022 11:48:36 Postoperative visit 191111881 Z09 ears clear tubes functionin g well follow-up in 6 months or earlier if he has any infection or drainage [id number] SAM MORALES MD [facility] [address] [address] 11/26/2022 11:57:15 11/28/2022 13:25:12 Abscess of skin and/or subcutaneous tissue 30491639 L02.91 Patient initially with RLQ abdomen abscess near waistline ~1mo ago; seen at Urgent Care & treated with Doxycyclin e 100mg PO BID x 7d. 3d ago abscess burst open draining serosangui nous pus. Today in clinic patient w/ [id number] RLQ abdomen erythema which is now well-heale d & non-tender (picture in chart). No fluctuant drainable fluid on exam.- No need for additional antibiotic s at this time.- ED precaution s if abscess reappears for formal I&D.- F/u in 2mo w/ PCP, sooner PRN. Obesity 604904907 E66.9 Smoker 51995720 F17.003 [id number] Gust[facility] [address] [place] [address] 07/13/2023 11:42:38 07/19/2023 12:32:48 Acute sinusitis 40839775 J01.90 start Flonase follow-up in 3 weeks Chronic se yvonne otitis media of right ear 173731412 H65.21 try antibiotic s and Flonase if ear does not clear we will need a tube [id number] Gustavo Barnes MD [facility] [address] [place] [address] 09/01/2023 15:12:12 09/02/2023 09:22:40 Chronic rhinitis 61913688 J31.0 Chronic se yvonne otitis media of right ear 015678239 H65.21 try antibiotic s and Flonase if ear does not clear we will need a tube [id number] Gustavo Barnes MD [facility] ts [address] [place] [address] 10/19/2023 11:26:30 10/28/2023 11:58:34 Postoperative visit 812752381 Z09 ears clear tubes functionin g well follow-up in 6 months or earlier if he has any infection or drainage Acute sinusitis 30267097 J01.90 start Flonase follow-up in 3 weeks follow back in 2 weeks Chronic hoarseness 90396 53995 105 R49.0 [id number] Jose Bobo MD [facility] [address] [address] 11/12/2023 10:47:03 11/20/2023 12:09:31 Adult health examination 362821907 Z00.00 Smoker 15561114 F17.200 11 PY smoking historydis cussed smoking cessation, has tried quitting in past- will discuss next visit for further management , possibly treat with nicotine patch, medication s etc Standardiz ed adult depression screening tool completed [id number] 94684 Z13.31 PHQ-9:0 Overweight 381552546 E66 .3 BMI: 27 Hoarse 38921533 R49.0 subacute likely 2/2 to his cough during his illness but given that it has been a few months and has not resolved, recommende d further evaluation with ENT for laryngosco py;- discussed obtaining TSH to rule out thyroid etiologies but patient preferred to see ENT first [id number] Gustavo Barnes MD [facility] [address] [place] [address] 11/30/2023 11:10:59 11/30/2023 11:40:58 Chronic rhinitis 86511083 J31.0 continue Flonase and antihistam stephanie follow back in a month Chronic laryngitis 71475 006 J37.0 [id number] CONOR RENDON DO [facility] [address] [facility] [address] [place] [address] 03/06/2025 09:32:12 03/09/2025 10:07:53 Smoker 01554655 F17.200 11 PY smoking historySti ll smoking. Half a pack/day to a pack a day.discus sed smoking cessation, has tried quitting in past- will try patches- f/u 1 month Adult heal th examination 460628546 Z00.00 - 02/21/21 colonoscop y: sigmoid polyp: tubular adenoma. No high grade dysplasia or invasion- consider prostate screening with PSA age 55 to 69 years; discussed USPSTF recommenda tion: Before deciding whether to be screened, men should have an opportunit y to discuss the potential benefits and harms of screening with their clinician and to incorporat e their values and preference s in the decision.- additional ly, USPSTF recommends LDCT to screen for lung cancer in adults aged 50 to 80 years who have a 20 pack-year smoking history and currently smoke or have quit within the past 15 years. patient is <50 years old and does NOT have 20 pack year history at this time. smoking cessation plan as above Overweight 382454496 E66 .3 BMI: 27.3 Hyperglycemia 99434270 R 73.9 02955 reported hyperglyce amadou during ER visit- HbA1c Screening for malignant neoplasm of colon 000896830 Z12.11 483921 - sees GI, plans to see soon; guideline CRC screening likely due 2025 (q5y without high grade dysplasia) Hyperlipid emia screening 290618734 Z13.220 024868 increased ASCVD risk given reported hyperglyce amadou, and smoking history- lipid panel [id number] Connie Guerrero-MD [facility] [address] [facility] [address] [place] [address] 03/14/2025 16:56:18 03/16/2025 13:45:20 Type 2 diabetes mellitus 00487672 E11.9 89884196 newly diagnosed diabetes mellitus HbA1c 9- Start metformin 500 mg BID-Advise d about diabetes, management , complicati ons and diabetic care, healthy lifestyle and health diet-Consi samuel diabetic eye exam, foot exam-Had opthalmolo gic eye exam this year and agreed to bring the document-f ollow up in 1 month Hyperlipidemia 19698333 E78.5 97069686 03/06/25 lipid panel TCHOL 200, TRIG 193, HDL 32, LDL 133- Start atorvastat in 40 mg daily History of polyp of colon 251077418 Z86.0100 6411237 -biopsy done in 2020 from sigmoid colon tubular adenoma and reported to be low risk for cancer-Has follow up with GI doctor and will have scheduled repeat colonoscop y [id number] MD [facility] [address] [address] 04/27/2025 15:28:12 05/03/2025 12:19:04 Type 2 diabetes mellitus 82065524 E11.9 43997913 uncontroll ed03/06/25 HbA1c 9foot exam completed 04/27/25: no loss of sensation, normal pulses- will try metformin ER 500 mg, start daily, increase to BID if tolerated- if not tolerating ER will try GLP-1 - trulicity; patient prefers to avoid injectable for now- Advised about diabetes, management , complicati ons and diabetic care, healthy lifestyle and health diet- needs dilated eye exam, saw eye doctor earlier this year so will likely not see them again until next year. encouraged earlier follow up for dilated eye exam- follow up in 1 month Hyperlipidemia 07946786 E78.5 [id number] 03/06/25 lipid panel TCHOL 200, TRIG 193, HDL 32, LDL 133History of diabetes- will try lower dose: atorvastat in 20 mg daily History of polyp of colon 193927896 Z86.0100 5540842 - biopsy done in 2020 from sigmoid colon tubular adenoma and reported to be low risk for cancer- Has follow up with GI doctor and will have scheduled repeat colonoscop y Smoker 72522612 F17.200 559397 11 PY smoking historySti ll smoking. Half a pack/day to a pack a day.discus sed smoking cessation, has tried quitting in past- previously tried patches- f/u 1 month for further discussion Allergic rhinitis 074709 04 J30.9 5030793610 takes [place] and flonase- continue- if not controlled , consider adding additional agents Overweight 431266576 E66 .3 BMI: 27.4 [id number] Jose Bobo MD [facility] [address] [facility] [address] [place] [address] 05/26/2025 15:53:40 05/30/2025 13:56:54 Type 2 diabetes mellitus 87436157 E11.9 50913060 uncontroll ed, [id number] /10/25 HbA1c 8.37 HbA1c 9foot exam completed 04/27/25: no loss of sensation, normal pulses- will increase metformin to 1000mg BID- if not tolerating ER will try GLP-1 - trulicity; patient prefers to avoid injectable for now- Advised about diabetes, management , complicati ons and diabetic care, healthy lifestyle and health diet- due for dilated eye exam; patient reported having eye imaging earlier this year negative for diabetic retinopath y, will try to obtain records- follow up in 1 month- consider rybelsus next time, consider SGLT-2 Hyperlipidemia 43303314 E78.5 07270391 03/06/25 lipid panel TCHOL 200, TRIG 193, HDL 32, LDL 133History of rulggvjr87 .4% Current 10-Year ASCVD Risk- continue atorvastat in 20 mg daily History of polyp of colon 854088718 Z86.0100 4083861 - biopsy done in 2020 from sigmoid colon tubular adenoma and reported to be low risk for cancer- Has follow up with GI doctor and will have scheduled repeat colonoscop y Smoker 88828972 F17.200 766155 11 PY smoking historySti ll smoking. Half a pack/day to a pack a day.discus sed smoking cessation, has tried quitting in past- previously tried patches, deferring for now- encourage cessation Allergic rhinitis 364067 04 J30.9 9360845188 takes [place] and flonase- continue- if not controlled , consider adding additional agents Overweight 736539230 E66 .3 BMI: 27.4 Adult heal th examination 530395365 Z00.00 0370898 - 02/21/21 colonoscop y: sigmoid polyp: tubular adenoma. No high grade dysplasia or invasion- consider prostate screening with PSA age 55 to 69 years; discussed USPSTF recommenda tion: Before deciding whether to be screened, men should have an opportunit y to discuss the potential benefits and harms of screening with their clinician and to incorporat e their values and preference s in the decision.- additional ly, USPSTF recommends LDCT to screen for lung cancer in adults aged 50 to 80 years who have a 20 pack-year smoking history and currently smoke or have quit within the past 15 years. patient is <50 years old and does NOT have 20 pack year history at this time. smoking cessation plan as above Health Concerns Section Related Observation LastModified by Organization Detai ls LastModified Time None Recorded Concern Status LastModified by Organization Details LastModified Time None Recorded Advance Directives Directive N: Payers Insurance Date Sequence Insurance Name Policy Number Policy Gonzalez Covered Member ID Gonzalez Member ID Guarantor Name 03/06/2025 1 [facility] - DOS ON OR AFTER 21 (MEDICAID REPLACEMENT - HMO) Avni Ordaz [id number] Avni Ordaz 03/06/2025 1 [facility] (MEDICAID HMO) Avni Ordaz [id number] Avni Ordaz 03/06/2025 1 [facility] [id number] Avni Ordaz [id number] Avni Ordaz 03/06/2025 1 [facility] - DOS PRIOR TO 2021 (MEDICAID REPLACEMENT - HMO) Avni Ordaz [id number] Avni Ordaz 03/06/2025 1 [place] [facility] Avni Ordaz [id number] Avni Ordaz 03/03/2025 1 [place] [id number] Breanne Ordaz [id number] Avni Ordaz 03/06/2025 1 [place] Avni Ordaz [id number] Avni Ordaz 06/25/2025 1 [facility] - DOS ON OR AFTER 21 (MEDICAID REPLACEMENT - HMO) Avni Ordaz [id number] Avni Ordaz 11/12/2023 1 [facility] (HMO) [place]ONEX Breanne Ordaz [id number] Avni Ordaz 03/06/2025 2 [facility] (POS) ILONEX Avni Ordaz [id number] Avni Ordaz Notes Date Note Type Note Provider Name and Address Organization Details Recorded Time 11/30/2023 text/html ROS as noted in the HPI patient continued have a hoarse voice. Has nasal congestion and drainage but has not really responded to medicines. He is a smoker. Gustavo Barnes MD [address] [place], [address], [facility] 11/30/2023 11:32:06 03/06/2025 text/html ROS as noted in the HPI 49 year old male with past medical history of obesity, smoking, here for annual exam. Last seen in office 11/12/23. At that time, he endorsed hoarseness, likely from cough. Was evaluated by ENT for consideration of laryngoscopy. ENT noted: chronic rhinitis, continue Flonase and antihistamines follow back in a month, and chronic laryngitis. Reported his blood sugars was above 200 at an ER visit, a couple of weeks ago. Only symptom is occassional fatigue. No nausea, vomiting, excessive urination, fever, chills. No personal history of diabetes. Grandfather had diabetes. Does thinks he needs to cut back on sugar intake. Still smoking. Half a pack/day to a pack a day. Smoking to cope with divorce. Amenable to trying quitting. Sarwat Bates DO Attn: Accounting,[address] [place], [address], [place] [facility] 03/10/2025 16:44:31 03/14/2025 text/html ROS as noted in the HPI 49 year old male with past medical history of obesity, smoking, here for annual exam.Last seen in office 11/12/23. At that time, he endorsed hoarseness, likely from cough. Was evaluated by ENT for consideration of laryngoscopy. ENT noted: chronic rhinitis, continue Flonase and antihistamines follow back in a month, and chronic laryngitis.Reported that his HgA1c was around 6, 5 years but he doesn't have a follow up. He reports ocassional fatigueNo personal history of diabetes. Grandfather had diabetes.Does thinks he needs to cut back on sugar intake.Still smoking. Half a pack/day to a pack a day. Smoking to cope with divorce.Amenable to trying quitting. Renny Pacheco MD Attn: Accounting,[address] [facility], [place], [address], [facility] 03/15/2025 10:22:04 04/27/2025 text/html ROS as noted in the [facility] 49 year old male with past medical history of diabetes, obesity, smoking, here for f/u in office. Has had some congestion for last two weeks and is concerned about a sinus infection though he has seasonal allergies that often present this way. Denies fever, chills, rhinorrhea, sore throat. Last seen in office 03/14/25. 03/06/25 HbA1c 9Started metformin 500 mg BID. Stopped taking after 2 weeks due to diarrhea.Reports home BGs 160s - 170s. Checks sugars almost daily.Down to one 20oz soda a day.Denies any increased thirst/urination.Has not joined gym yet.Stopped taking atorvastatin last week due to joint pain. Amenable to lower dose Yamileth Gtz MD Attn: Accounting,[address] [facility], [place], [address], [facility] 04/27/2025 16:28:10 05/26/2025 text/html ROS as noted in the [facility] 49 year old male with past medical history of diabetes, hyperlipidemia, obesity, smoking, here for dm, hld f/u. 03/06/25 HbA1c 9. Started metformin 500 mg BID. Stopped taking after 2 weeks due to diarrhea. Last seen in office 04/27/25, patient was amenable to re-try metformin ER 500 mg, start daily, increase to BID if tolerated; patient preferred this over GLP-1 injectable. Fasting blood glucose 130s-150s.Down to one 20oz soda a day.HbA1c today 8.3.Prefers ER formulation of metformin: less side effects appreciated.Denies any increased thirst/urination.Pre viously stopped taking atorvastatin last week due to joint pain. Amenable to lower dose, so we restarted on atorvastatin 20mg, he is tolerating this well.Has not joined gym yet.Exercising: at work, works at [employer])Prefers to continue with metformin only for his DM management over adding additional meds. Smoking: pack lasts for varying amount of timeNo/rare alcohol use. Connie Colunga MD Attn: Accounting,[address] [place], [address], [facility] 05/27/2025 12:29:56
--- OUTSIDE RECORDS SUMMARY | 2025-08-09 09:59 | XMS_ITS | Clinical Summary ---
Author Organization [facility] Address [address] [place] [address] Care Team Providers Care Cost And Sales Record Supervisor Name Role Phone New Referring, Provider Primary Care Provider Un available Allergies No known active allergies Medications Fexofenadine-Pse udoephedrine (SALEEM-D ALLERGY & CONGESTION) 180-240 MG TABLET SR 24 HR Take 1 tablet by mouth daily. 14 tablet 07/19/2017 Active diclofenac EC 75 MG tablet Take 1 tablet (75 mg total) by mouth 2 (two) times daily. 60 tablet 05/22/2019 Active Social History Tobacco Use Types Packs/Day Years Used Date Smoking Tobacco: Every Day Cigarettes Smokeless Tobacco: Current Tobacco Cessation:Ready to Q uit: Not Asked; Counseling Given: Not Answered Alcohol Use Standard Drinks/Week Comments Yes 0 (1 standard drink = 0.6 oz pur e alcohol) seldom Sex and Gender Information Value Date Recorded Sex Assigned at Male 01/03/2025 2:59 PM CDT Legal Sex Male 8:00 PM CDT Gender Identity Not on file Sexual Orientation Not on file Last Filed Vital Signs Vital Sign Reading Time Taken Comments Blood Pressure 134/89 01/03/2025 4:14 PM CDT Pulse 75 01/03/2025 4:14 PM CDT Temperature 36.7 C (98 F) 01/03/2025 1:51 PM CDT Respiratory Rate 18 01/03/2025 4:14 PM CDT Oxygen Saturation 100% 01/03/2025 4:14 PM CDT Inhaled Oxygen Concentration - - Weight 77.1 kg (170 lb) 01/03/2025 1:51 PM CDT Height 167.6 cm (5' 6) 01/03/2025 1:51 PM CDT Body Mass Index 27.44 01/03/2025 1:51 PM CDT Plan of Treatment Health Maintenance Due Date Last Done Comments Colorectal Cancer Screening Colonoscopy (10 Years) 1976 Annual Physical 1979 Hepatitis C 1994 DTaP, Tdap and Td Vaccines ( 1 - Tdap) 1995 Hepatitis B Vaccines (1 of 3 - 19+ 3-dose series) 1995 Pneumococcal Vaccine: Pediat rics (0 to 5 Years) and At-Risk Patients (6 to 49 Years) (1 of 2 - PCV) 1995 COVID-19 Vaccine (2024-2 6 season) 2025 Influenza Adult (#1) 2025 Hepatitis A Vaccines Aged Out No long er eligible based on patient's age to complete this topic Meningococcal B Vaccine Aged Out No l onger eligible based on patient's age to complete this topic Meningococcal Vaccine Aged Out No naif wen eligible based on patient's age to complete this topic RSV Immunizations Under 20 Months Aged Out No longer eligible based on patient's age to complete this topic Insurance [employer] Care Teams Cost And Sales Record Supervisor Relationship Specialty Start Date End Date New Referring, Provider PCP - General UNKNOWN PHYSICIAN SPECIALTY 05/22/19
--- OUTSIDE RECORDS SUMMARY | 2025-08-09 09:59 | XMS_ITS | Continuity of Care Document ---
Author Organization [facility] Address [address] [facility] [address] [place] [address] Care Team Providers Care Bank Credit Card Collection Clerk Name Role Phone ARON JAMISONSUNI Primary Care Provider Unavailabl e Assessment Encounter Date Assessment Date Assessment LastModified by Organization Details LastModified Time 05/26/2025 05/26/2025 49 year old male with past medical history of diabetes, hyperlipidemi a, obesity, smoking, here for dm, hld f/u. Not available 05/26/2025 12:30:33 Plan of Treatment Reminders Order Date Submit Date Provider Last Modified By Organization Details Last Modified Time Details Appointments None recorded. Lab HbA1c (hemoglobin A1c), blood 2024 In-Office Order, Internal Use Only DO Not Attach Compendium DO Not Attach Compendium, Do Not Delete/merge, [id number] 16:22:24 Referral None recorded. Procedures None recorded. Surgeries None recorded. Imaging None recorded. Medication Orders metformin ER 500 mg tablet,exte nded release 24 hr 2024 025 [facility] #[id number], [id number] [facility], [place], [place], [id number], 16:34:19 atorvastati n 20 mg tablet 2024 025 [employer] [facility] #[id number], [address] [facility], [place], [place], [phone], 16:34:19 Patient TargetsNo targets recorded. Patient Instructions Encounter Date Encounter Id Patient Instructions Last Modified By Organization Details Last Modified Time 05/26/2025 [id number] A healthy lifestyle: care instructions Not available 05/26/2025 16:22:24 Quitting Tobacco: Care Instructions Not available 05/26/2025 16:22:24 I was present and available in the family medicine clinic to discuss the patient's care during the appointment and the case was discussed with me. I agree with the resident's assessment and plan as documented. HL [email or web address] Not available 05/27/2025 12:29:52 Reason for Referral None Reported. Results Created Date Observation Date Name Description Value Unit Range Abnormal Flag Note LastModifiedBy Organization Detail LastModifiedTime 05/26/2005/26/2025 HbA1c (hemo globi n A1c), blood HbA1C 8.3 % Not Available In-Office Order Internal Use Only DO Not Attach Compendium DO Not Attach Compendium, Do Not Delete/merge, [id number] 05/26/2025 16:13:54 Result Notes None recorded. Problems Name Problem SNOMED Code Status Onset Date Resolution Date Notes Provider Name and Address Organization Details Recorded Time Diverticulitis 501483933 Active 2019 Ulises Hungi null, [place] - [facility] 0 14:11:07 Smoker 79899315 Active 2022 Deondre Disla [place], [place] - [facility] 3 16:42:14 Obesity 941715763 Active 2022 Deondre Kotenzine [place], [place] - [facility] 3 16:42:19 Abscess of skin and/or subcutaneous tissue 22923718 Active 2022 Deondre Disla [place], [place] - [facility] 3 16:42:22 Problem Notes None recorded. Procedures Surgical History Date Name Laterality Status Provider Name and Address Organization Details Recorded Time 11/30/19 24 Flexible Laryngoscopy completed Gustavo Barnes MD [address] [place], [address], [place] - [facility] 11/30/2023 11:31:17 01/02/20 22 TYMPANOSTOMY, TUBE INSERTION (SURG) completed SAM MORALES MD Attn: Accounting,[address] [place] [address] [place], [address], [place] [facility] 01/30/2022 16:14:01 Imaging Results None recorded. Procedure [...] a dose pack FOLLOW PACKAGE DIRECTION S 09/11 /2025 completed Not Available Not Available Not Available [...] Updated DateTime 5 166.37 cm 27.5 kg/m2 49314.8 7 g 98 [degF] 96 % 92 /min 121/81 mm[Hg] Bouchra Quinteros [place] - [facility] 5 16:06:59 Social History Question Answer Notes LastModified [...] Much Tobacco Do You Smoke? 0.5 PPD Information not available 05/27/2019 Has Tobacco Cessation [...] ICD10 Code Diagnosis IMO Codes Diagnosis Note [id number] MD [facility] [address] [address] 04/27/2025 15:28:12 05/03/2025 12:19:04 Type 2 diabetes mellitus 29657438 E11.9 [id number] uncontroll ed03/06/25 HbA1c 9foot exam completed 04/27/25: [...] exam- follow up in 1 month Hyperlipidemia 79589059 E78.5 49835771 03/06/25 lipid panel TCHOL 200, TRIG 193, HDL 32, LDL 133History of diabetes- will try lower dose: atorvastat in 20 mg daily History of polyp of colon 414738607 Z86.0100 2379314 - biopsy done in 2020 from sigmoid colon tubular adenoma and reported to be low risk for cancer- Has follow up with GI doctor and will have scheduled repeat colonoscop y Smoker 77977692 F17.200 989017 11 PY smoking historySti ll smoking. Half a pack/day to a pack a day.discus sed smoking cessation, has tried quitting in past- previously tried patches- f/u 1 month for further discussion Allergic rhinitis 766053 04 J30.9 3626141543 takes [place] and flonase- continue- if not controlled , consider adding additional agents Overweight 491376440 E66 .3 BMI: 27.4 [id number] MD [facility] [address] [facility] [address] [place] [address] 05/26/2025 15:53:40 05/30/2025 13:56:54 Type 2 diabetes mellitus 13640465 E11.9 [id number] uncontroll ed, [id number] /10/25 HbA1c 8.37 HbA1c 9foot exam completed [...] consider rybelsus next time, consider SGLT-2 Hyperlipidemia 04213293 E78.5 94019990 03/06/25 lipid panel TCHOL 200, TRIG 193, HDL 32, LDL 133History of ytagpcif96 .4% Current 10-Year ASCVD Risk- continue atorvastat in 20 mg daily History of polyp of colon 529396952 Z86.0100 2822563 - biopsy done in 2020 from sigmoid colon tubular adenoma and reported to be low risk for cancer- Has follow up with GI doctor and will have scheduled repeat colonoscop y Smoker 44293453 F17.200 584929 11 PY smoking historySti ll smoking. Half a pack/day to a pack a day.discus sed smoking cessation, has tried quitting in past- previously tried patches, deferring for now- encourage cessation Allergic rhinitis 399655 04 J30.9 0045623830 takes [place] and flonase- continue- if not controlled , consider adding additional agents Overweight 450277659 E66 .3 BMI: 27.4 Adult heal th examination 835204612 Z00.00 5773958 - 02/21/21 colonoscop y: sigmoid polyp: tubular [...] Concerns Section Related Observation LastModified by Organization Anand preciado LastModified Time None Recorded Concern Status LastModified by Organization Details LastModified Time None Recorded Payers Encounter Date Sequence Insurance Name Policy Number Policy Gonzalez Covered Member ID Gonzalez Member ID Guarantor Name 05/26/2025 1 [facility] - DOS ON OR AFTER 21 (MEDICAID REPLACEMENT - HMO) Avni Ordaz [id number] Avni Ordaz Notes Date Note Type Note Provider Name and Address Organization Details Recorded Time 05/26/2025 text/html ROS as noted in the HPI [...] metformin: less side effects appreciated.Denies any increased thirst/urination.P reviously stopped taking atorvastatin last week due to joint pain. Amenable to lower dose, so we restarted on atorvastatin 20mg, he is tolerating this well.Has not joined gym yet.Exercising: at work, works at [email or web address])Prefers to continue with metformin only for his DM management over adding additional meds. Smoking: pack lasts for varying amount of timeNo/rare alcohol use. Connie Colunga MD Attn: [facility]ing,[address] [facility], [place], [address], [facility] 05/27/2025 12:29:56
== END 2025-08-09 09:57 | disposition home or self-care (01) ==
LOC: ANHAUDIO 09:56
PROVIDERS: Visit Provider Otolaryngology
DX: H66.93 Otitis media, unspecified, bilateral (principal)
CPT/HCPCS: 92557; 92567